=== PATIENT | female | born 1940 | race Caucasian/White ===

== ENCOUNTER 2019-01-13 12:26 | Emergency (ER) | payer OTHER ==
--- OUTSIDE RECORDS SUMMARY | 2019-01-13 12:29 | XMS REPORT ---
:1940 Author Organization eClinicalWorks Care Team Providers Name Role Phone Leone [facility] Provider Role Unavailable Allergies, Adverse Reactions, Alerts Substance Reaction Event Type N.K.D.A. Info Not Available Non Drug Allergy Problems Problem Type Condition Code Onset Dates Condition Status Problem GERD without esophagitis K21.9 Active Problem Carotid artery occlusion syndrome G45.1 Active Problem Mixed hyperlipidemia E78.2 Active Assessment Migraine without aura and without G43.009 Active status migrainosus, not intractable Problem Migraine with aura and without G43.109 Active status migrainosus, not intractable Problem Rash R21 Active Problem Migraine without aura and without G43.009 Active status migrainosus, not intractable Problem At risk for falls Z91.81 Active Problem HTN, goal below 150/90 I10 Active Problem Allergic reaction, initial T78.40XA Active encounter Problem Osteopenia, unspecified location M85.80 Active Medications Medication Code Code Instructions Start End Status Dosage System Date Date Alive Once Daily [facility] 70108382192 - Orally Active as directed Womens 50+ Collagen Plus Vitamin [facility] 50722186389 740-125 MG Active 2 capsules C Orally Once a day Hair Skin Nails ND 49831098892 - Orally Active as directed Metoprolol Tartrate ND 76986024234 25 MG Orally Active 1 tablet Twice a day with food Vitamin C [facility] 69041015124 500 MG Orally Active as directed Move Free Joint [facility] 04626815143 - Orally Active as directed Health Advance Losartan Potassium ND 18404934999 100 MG Orally Active 1 tablet Once a day Calcium + D3 ND 95621802337 600-200 Active 1 tablet MG-UNIT Orally with a meal Once a day Triamcinolone ND 71293538815 0.1 % Sept Active 1 Acetonide Externally 20, application Twice a day 2017 to affected area Hydrochlorothiazide ND 77338228534 12.5 MG Orally Active 1 capsule in Once a day the morning Probiotic ND 17611486957 250 MG Orally Active 1 capsule Twice a day Cinnamon ND 66447792385 500 MG Orally Active as directed [place] 3-6-9 Complex [facility] 50701818086 - Orally Active as directed Turmeric Curcumin [facility] 46255124906 500 MG Orally Active as directed Simvastatin [facility] 97278830377 20 MG Orally Active 1 tablet in Once a day the evening Clopidogrel Bisulfate [facility] 51204389594 75 MG Orally Active 1 tablet Once a day Selenium [facility] 72385059572 100 MCG Orally Active 1 tablet Once a day Ultra COQ10 [facility] 79928145980 75 MG Orally Active as directed Pantoprazole Sodium [facility] 14533124320 40 MG Orally Active 1 tablet Once a day Results No Known Results Summary Purpose eClinicalWorks Submission
[2019-01-13 14:09] LABS: Absolute Lymphocytes (CBC) 2.5 K/uL (0.7-4.9); Basophils % 1.3 % (0-1.3); Hematocrit 36.5 % (36.0-45.0); Lymphocytes % 39.5 % (15.3-44.8); MPV 9.7 fL (7.6-11.3); Protime INR 0.96; RBC Red Blood Cell Count 3.92 M/uL (3.86-4.86)
--- NOTE | 2019-01-13 14:21 | RAD REPORT ---
EXAM DESCRIPTION: RAD - Chest Single View - 01/13/2019 2:01 pm CLINICAL HISTORY: Weakness, shortness of breath COMPARISON: March 2015 TECHNIQUE: AP portable chest image was obtained 1340 hours . FINDINGS: Lung volumes are low. No peripheral mass or consolidation. Interstitial pattern is slightl y increased over comparison. Heart and vasculature are normal. No measurable pleural effusion and no pneumothorax. No acute bony abnormality seen. No acute aortic findings suspected. IMPRESSION: No focal mass or consolidation. Minimal interstitial edema or infiltrate pattern.
[2019-01-13 14:32] LABS: ALT/SGPT 23 U/L (12-78); AST/SGOT 18 U/L (15-37); Albumin 4.1 g/dL (3.4-5.0); Alkaline Phosphatase 80 U/L (45-117); BUN Blood Urea Nitrogen 46 mg/dL (7-18); Bicarbonate 30 mmol/L (21-32); Bilirubin Direct 0.2 mg/dL (0-0.2); Bilirubin Total 0.5 mg/dL (0.2-1.0); C-Reactive Protein 4.11 mg/L (<3.00); Glucose Level 107 mg/dL (74-106); Magnesium 1.7 mg/dL (1.8-2.4); NT PRO-BNP 102 pg/mL (<450); Protein, Total 7.6 g/dL (6.4-8.2); Sodium Level 142 mmol/L (136-145); Troponin (Emerg Dept Use Only) < 0.02 ng/mL (0.0-0.045)
--- NOTE | 2019-01-13 16:31 | ER ---
Nurse's Notes [facility] Name: Celina Dinh Age: 78 yrs Sex: Female : 1940 Arrival Date: 01/13/2019 Time: 12:35 Bed 24 Private MD: Diagnosis: Low back pain;Upper Back Pain, Arthralgias Presentation: 01/13 12:39 Presenting complaint: Pain in neck, back, bilateral legs, and generalized weakness x 1 hb week. Denies N/V/D/fever. Transition of care: patient was not received from another setting of care. Onset of symptoms was January 06, 2019. Risk Assessment: Do you want to hurt yourself or someone else? Patient reports no desire to harm self or others. Initial Sepsis Screen: Does the patient meet any 2 criteria? No. Patient's initial sepsis screen is negative. Does the patient have a suspected source of infection? No. Patient's initial sepsis screen is negative. 12:39 Method Of Arrival: Ambulatory hb 12:39 Acuity: SHERRELL 3 hb 13:00 Care prior to arrival: None. ca1 Historical: - Allergies: 12:41 Aspirin; nausea; hb - Immunization history:: Adult Immunizations up to date. - Social history:: Smoking status: Patient/guardian denies using tobacco. - Ebola Screening: : No symptoms or risks identified at this time. Screenin:53 Abuse screen: Denies threats or abuse. Denies injuries from another. Nutritional ca1 screening: No deficits noted. Tuberculosis screening: No symptoms or risk factors identified. Fall Risk None identified. Assessment: 12:53 General: Appears in no apparent distress. comfortable, Behavior is calm, cooperative, ca1 appropriate for age, Reports fatigue for >3 days. Pain: Complains of pain in back and neck Pain currently is 3 out of 10 on a pain scale. Neuro: Level of Consciousness is awake, alert, obeys commands, Oriented to person, place, time, situation. Cardiovascular: Heart tones S1 S2 present Capillary refill < 3 seconds Patient's skin is warm and dry. Pulses are all present. Edema is 2+ to left ankle, left foot, left toes, right ankle, right foot and right toes. Respiratory: Airway is patent Respiratory effort is even, unlabored, Respiratory pattern is regular, symmetrical, Breath sounds are clear bilaterally. GI: Abdomen is round non-distended, Bowel sounds present X 4 quads. Abd is soft and non tender X 4 quads. : No deficits noted. No signs and/or symptoms were reported regarding the genitourinary system. EENT: No deficits noted. No signs and/or symptoms were reported regarding the EENT system. Derm: Skin is intact, is healthy with good turgor, Skin is pink, warm \T\ dry. Musculoskeletal: Circulation, motion, and sensation intact. Capillary refill < 3 seconds. 14:13 Reassessment: Patient appears in no apparent distress at this time. Patient and/or ca1 family updated on plan of care and expected duration. Pain level reassessed. Patient is alert, oriented x 3, equal unlabored respirations, skin warm/dry/pink. 15:12 Reassessment: Patient appears in no apparent distress at this time. Patient and/or ca1 family updated on plan of care and expected duration. Pain level reassessed. Patient is alert, oriented x 3, equal unlabored respirations, skin warm/dry/pink. 16:07 Reassessment: Patient appears in no apparent distress at this time. Patient and/or ca1 family updated on plan of care and expected duration. Pain level reassessed. Patient is alert, oriented x 3, equal unlabored respirations, skin warm/dry/pink. 16:53 Reassessment: Patient appears in no apparent distress at this time. Patient is alert, ca1 oriented x 3, equal unlabored respirations, skin warm/dry/pink. Vital Signs: 12:40 BP 129 / 56; Pulse 62; Resp 16; Temp 98.1; Pulse Ox 100% on R/A; Weight 72.57 kg; hb Height 5 ft. 4 in. (162.56 cm); Pain 3/10; 14:13 BP 152 / 62; Pulse 60; Resp 19 S; Pulse Ox 100% ; ca1 14:50 BP 142 / 50; Pulse 59; Resp 17 S; Pulse Ox 99% on R/A; ca1 15:12 BP 142 / 82; Pulse 84; Resp 22 S; Pulse Ox 99% on R/A; ca1 16:07 BP 159 / 61; Pulse 63; Resp 16 S; Pulse Ox 100% on R/A; ca1 16:50 BP 142 / 79; Pulse 71; Resp 17 S; Pulse Ox 100% on R/A; ca1 12:40 Body Mass Index 27.46 (72.57 kg, 162.56 cm) hb ED Course: 12:35 Patient arrived in ED. am2 12:40 Triage completed. hb 12:40 Arm band placed on. hb 12:52 Maddy Davila, RN is Primary Nurse. ca1 12:53 Patient has correct armband on for positive identification. Placed in gown. Bed in low ca1 position. Call light in reach. Side rails up X 1. Pulse ox on. NIBP on. Warm blanket given. 12:53 No provider procedures requiring assistance completed. ca1 13:05 Mal Vazquez MD is Attending Physician. kdr 13:30 Missed attempt(s): 22 gauge in right antecubital area. Bleeding controlled, band aid ca1 applied, catheter tip intact. 13:40 Missed attempt(s): 22 gauge in right forearm. Bleeding controlled, band aid applied, ca1 catheter tip intact. 13:50 EKG done, by solar installer technician. reviewed by Mal Vazquez MD. at1 16:53 Patient did not have IV access during this emergency room visit. ca1 Administered Medications: No medications were administered Outcome: 16:29 Discharge ordered by . kdr 16:53 Discharged to home ambulatory, with friend. ca1 16:53 Condition: stable 16:53 Discharge instructions given to patient, friend, Instructed on discharge instructions, follow up and referral plans. Demonstrated understanding of instructions, follow-up care. 16:54 Patient left the ED. ca1 Signatures: Mal Vazquez MD MD kdr Elaina Mortensen, crap shooter EKG Tat1 Felicity Ware RN RN Elaina Johnson am2 Maddy Davila, MIKE RN ca1 Corrections: (The following items were deleted from the chart) 14:16 14:15 Missed attempt(s): 22 gauge Bleeding controlled, band aid applied, catheter tip ca1 intact. ca1
--- NOTE | 2019-01-13 16:32 | EDPHYS ---
Physician Documentation [facility] Name: Celina Dinh Age: 78 yrs Sex: Female : 1940 Arrival Date: 01/13/2019 Time: 12:35 Bed 24 Private MD: ED Physician Mal Vazquez HPI: 01/13 18:31 This 78 yrs old Female presents to ER via Ambulatory with complaints of Back kdr Pain, Neck Pain, <24hrs Old, Weakness. 18:32 The patient has c/o several days of pain in lher spine top to bottom as well as kdr bilateral shoulder pain and pain in her joints in general. Onset: The symptoms/episode began/occurred gradually, 1 week(s) ago. Severity of symptoms: At their worst the symptoms were mild in the emergency department the symptoms are unchanged. The patient has not experienced similar symptoms in the past. The patient has not recently seen a physician. Gets better with Tylenol. Historical: - Allergies: 12:41 Aspirin; nausea; hb - Immunization history:: Adult Immunizations up to date. - Social history:: Smoking status: Patient/guardian denies using tobacco. - Ebola Screening: : No symptoms or risks identified at this time. ROS: 18:32 Constitutional: Negative for fever, chills, and weight loss, Eyes: Negative for injury, kdr pain, redness, and discharge, ENT: Negative for injury, pain, and discharge, Neck: Negative for injury, pain, and swelling, Cardiovascular: Negative for chest pain, palpitations, and edema, Respiratory: Negative for shortness of breath, cough, wheezing, and pleuritic chest pain, Abdomen/GI: Negative for abdominal pain, nausea, vomiting, diarrhea, and constipation, Back: Negative for injury and pain, : Negative for injury, bleeding, discharge, and swelling, Skin: Negative for injury, rash, and discoloration, Neuro: Negative for headache, weakness, numbness, tingling, and seizure activity. Psych: Negative for depression, anxiety, suicide ideation, homicidal ideation, and hallucinations, Allergy/Immunology: Negative for hives, rash, and allergies, Endocrine: Negative for neck swelling, polydipsia, polyuria, polyphagia, and marked weight changes, Hematologic/Lymphatic: Negative for swollen nodes, abnormal bleeding, and unusual bruising. 18:32 MS/extremity: Positive for pain. Exam: 18:32 Constitutional: This is a well developed, well nourished patient who is awake, alert, kdr and in no acute distress. Head/Face: Normocephalic, atraumatic. Eyes: Pupils equal round and reactive to light, extra-ocular motions intact. Lids and lashes normal. Conjunctiva and sclera are non-icteric and not injected. Cornea within normal limits. Periorbital areas with no swelling, redness, or edema. Neck: Trachea midline, no thyromegaly or masses palpated, and no cervical lymphadenopathy. Supple, full range of motion without nuchal rigidity, or vertebral point tenderness. No Meningismus. Chest/axilla: Normal chest wall appearance and motion. Nontender with no deformity. No lesions are appreciated. Cardiovascular: Regular rate and rhythm with a normal S1 and S2. No gallops, murmurs, or rubs. Normal PMI, no JVD. No pulse deficits. Respiratory: Lungs have equal breath sounds bilaterally, clear to auscultation and percussion. No rales, rhonchi or wheezes noted. No increased work of breathing, no retractions or nasal flaring. Abdomen/GI: Soft, non-tender, with normal bowel sounds. No distension or tympany. No guarding or rebound. No evidence of tenderness throughout. Back: No spinal tenderness. No costovertebral tenderness. Full range of motion. Skin: Warm, dry with normal turgor. Normal color with no rashes, no lesions, and no evidence of cellulitis. MS/ Extremity: Pulses equal, no cyanosis. Neurovascular intact. Full, normal range of motion. Neuro: Awake and alert, GCS 15, oriented to person, place, time, and situation. Cranial nerves II-XII grossly intact. Motor strength 5/5 in all extremities. Sensory grossly intact. Cerebellar exam normal. Normal gait. Psych: Awake, alert, with orientation to person, place and time. Behavior, mood, and affect are within normal limits. Vital Signs: 12:40 BP 129 / 56; Pulse 62; Resp 16; Temp 98.1; Pulse Ox 100% on R/A; Weight 72.57 kg; hb Height 5 ft. 4 in. (162.56 cm); Pain 3/10; 14:13 BP 152 / 62; Pulse 60; Resp 19 S; Pulse Ox 100% ; ca1 14:50 BP 142 / 50; Pulse 59; Resp 17 S; Pulse Ox 99% on R/A; ca1 15:12 BP 142 / 82; Pulse 84; Resp 22 S; Pulse Ox 99% on R/A; ca1 16:07 BP 159 / 61; Pulse 63; Resp 16 S; Pulse Ox 100% on R/A; ca1 16:50 BP 142 / 79; Pulse 71; Resp 17 S; Pulse Ox 100% on R/A; ca1 12:40 Body Mass Index 27.46 (72.57 kg, 162.56 cm) hb MDM: 16:29 Patient medically screened. kdr 18:32 Data reviewed: vital signs, nurses notes, lab test result(s), radiologic studies. kdr Counseling: I had a detailed discussion with the patient and/or guardian regarding: the historical points, exam findings, and any diagnostic results supporting the discharge/admit diagnosis, lab results, radiology results, the need for outpatient follow up. 01/13 13:23 Order name: Basic Metabolic Panel [facility] 01/13 13:23 Order name: CBC with Diff [facility] 01/13 13:23 Order name: LFT's [facility] 01/13 13:23 Order name: Magnesium [facility] 01/13 13:23 Order name: NT PRO-BNP [facility] 01/13 13:23 Order name: PT-INR [facility] 01/13 13:23 Order name: Troponin (emerg Dept Use Only) [facility] 01/13 13:23 Order name: ESR [facility] 01/13 13:23 Order name: CRP [facility] 01/13 14:14 Order name: CBC with Automated Diff; Complete Time: 15:07 [facility] 01/13 14:14 Order name: Protime (+INR); Complete Time: 14:33 [facility] 01/13 14:35 Order name: Basic Metabolic Panel; Complete Time: 15:07 [facility] 01/13 14:35 Order name: Liver (Hepatic) Function; Complete Time: 15:07 [facility] 01/13 14:35 Order name: Troponin (Emerg Dept Use Only); Complete Time: 15:07 [facility] 01/13 13:23 Order name: XRAY Chest (1 view) [facility] 01/13 13:23 Order name: EKG; Complete Time: 13:26 [facility] 01/13 13:23 Order name: Cardiac monitoring; Complete Time: 13:27 [facility] 01/13 13:23 Order name: EKG - Nurse/Tech; Complete Time: 13:41 [facility] 01/13 13:23 Order name: IV Saline Lock; Complete Time: 13:54 [facility] 01/13 13:23 Order name: Labs collected and sent; Complete Time: 13:54 [facility] 01/13 13:23 Order name: O2 Per Protocol; Complete Time: 13:27 [facility] 01/13 13:23 Order name: O2 Sat Monitoring; Complete Time: 13:27 [facility] 01/13 14:35 Order name: NT PRO-BNP; Complete Time: 15:07 [facility] 01/13 14:35 Order name: C-Reactive Protein; Complete Time: 15:07 [facility] 01/13 14:35 Order name: Magnesium; Complete Time: 15:07 [facility] 01/13 14:37 Order name: Sedimentation Rate, W[place]; Complete Time: 15:07 [facility] Administered Medications: No medications were administered Disposition: 01/13/19 16:29 Discharged to Home. Impression: Low back pain, Upper Back Pain, Arthralgias. - Condition is Stable. - Medication Reconciliation Form, Thank You Letter, Antibiotic Education, Prescription Opioid Use form. - Follow up: Private Physician; When: 2 - 3 days; Reason: If symptoms return, Further diagnostic work-up, Recheck today's complaints, Continuance of care, Re-evaluation by your physician. - Problem is new. - Symptoms have improved. Signatures: Dispatcher [employer] [facility] Mal Vazquez MD MD [facility] Felicity Ware RN RN Maddy Davila RN RN ca1 Corrections: (The following items were deleted from the chart) 16:54 16:29 01/13/2019 16:29 Discharged to Home. Impression: Low back pain; Upper Back Pain, ca1 Arthralgias. Condition is Stable. Forms are Medication Reconciliation Form, Thank You Letter, Antibiotic Education, Prescription Opioid Use. Follow up: Private Physician; When: 2 - 3 days; Reason: If symptoms return, Further diagnostic work-up, Recheck today's complaints, Continuance of care, Re-evaluation by your physician. Problem is new. Symptoms have improved. kdr
[2019-01-13 17:49] VITALS: TEMP 98.1
[2019-01-13 17:54] VITALS: O2SAT 100
[2019-01-13 17:56] VITALS: BP 142/79
--- NOTE | 2019-01-14 10:34 | EKG ---
Test Date: 2019-01-13 Test Time: 13:36:47 Social Media Marketer: ARUNA MEASUREMENT RESULTS: Intervals: Rate: 61 RI: 232 QRSD: 88 QT: 428 QTc: 430 [place]: P: 46 RI: 232 QRS: -1 T: 72 INTERPRETIVE STATEMENTS: Sinus rhythm with 1st degree AV block Possible Anterior infarct, age undetermined Abnormal ECG Compared to ECG 03/28/2015 08:07:49 First degree AV block now present Myocardial infarct finding still present Electronically Signed On 01-14-19 10:31:45 CDT by J Carlos Rivero
== END 2019-01-13 16:54 | disposition home or self-care (01) ==
LOC: ER 12:26
DX: M54.5 Low back pain (principal); M54.9 Dorsalgia, unspecified
CPT/HCPCS: 36415; 71045; 80048; 80076; 83735; 83880; 84484; 85025; 85610; 85652; 86140; 93005; 99283

== ENCOUNTER 2020-05-17 19:08 | Inpatient (IN) | payer OTHER, SELFPAY ==
--- OUTSIDE RECORDS SUMMARY | 2020-05-17 19:11 | XMS REPORT | Continuity of Care Document ---
:1940 Author Organization [facility] t Address [address] 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 [facility] Mixed Mixed Problem Active [facility]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 hyperlipid Alyce kes - emia emia Memoria l [facility] GERD GERD Problem Active [facility] without without [facility] - esophagiti esophagiti Me moria s s l [facility] At risk At risk Problem Active [facility] for falls for falls [facility] - Memoria l [facility] HTN, goal HTN, goal Problem Active [facility] below below [facility] - 150/90 150/90 Memoria l [facility] Rash Rash Problem Active [facility] Allergic Allergic Problem Active [facility] reaction, reaction, Luke [facility] - initial initial Memoria encounter encounter l [facility] Osteopenia Osteopenia Problem Active [facility] , , [facility] - unspecifie unspecifie Me moria d location d location l [facility] Migraine Migraine Problem Active [facility] with aura with aura Luke [facility] - and and Memoria without without l status status Outpati migrainosu migrainosu en t s, not s, not Clinics intractabl intractabl e e Migraine Migraine Problem Active [facility] without without [facility] - aura and aura and Memori a without without l status status [facility] migrainosu migrainosu en t s, not s, not Clinics intractabl intractabl e e Hypercalce Hypercalce Problem Active [facility] ir[facility] iris [facility] Vitamin D Vitamin D Problem Active [facility] deficiency deficiency [facility] Hypomagnes Hypomagnes Problem Active [facility] emia emia [facility] Allergies, Adverse Reactions, Alerts Allergy Allergy Status Severity Reaction(s) Onset Inactive Treating Comm ents Source Name Type Date Date Clinician Aspirin Allergy Active Anaphylaxis Maryan gerson to Family substanc Practic e e Social History Smoking Status Start Date Stop Date Source Never Smoker [facility] Medications Ordered Filled Start Stop Current Ordering Indication Dosage Frequency Signature Comments Components Source Medication Medication Date Date Medication? Clinician (SIG) Name Name Magnesium Magnesium 2019-0 2020- No Adrian [address] [facility] Oxide Oxide 1-16 04-[address] [facility] 00:00: 00:[address] [facility] 00 :00 [facility] clopidogrel clopidogrel No 1 Q1D clopidogre [facility] 75 mg 75 mg l 75 mg Family tablet Take tablet Take tablet Practic 1 tablet 1 tablet Take 1 e every day every day tablet by oral by oral every day route. route. by oral route. magnesium magnesium No 1mg magnesium [facility] oxide 400 oxide 400 oxide 400 Family mg (241.3 mg (241.3 mg (241.3 Practic mg mg mg e magnesium) magnesium) magnesium) tablet Take tablet Take tablet 1 mg by 1 mg by Take 1 mg oral route. oral route. by oral route. simvastatin simvastatin No 1 Q1D simvastati [facility] 20 mg 20 mg n 20 mg Family tablet Take tablet Take tablet Practic 1 tablet 1 tablet Take 1 e every day every day tablet by oral by oral every day route. route. by oral route. valsartan valsartan No 1 Q1D valsartan [facility] 320 mg 320 mg 320 mg Family tablet Take tablet Take tablet Practic 1 tablet 1 tablet Take 1 e every day every day tablet by oral by oral every day route. route. by oral route. Clopidogrel Clopidogrel Yes Adrian [address] [facility] Bisulfate Bisulfate Leone [facility] ent [facility] Move Free Move Free Yes Adrian as [facility] Joint Joint Leone directed [facility] [place] Advance Advance l [facility] Metoprolol Metoprolol Yes Adrian [address] [facility] Tartrate Tartrate [place] with food L [facility] Vitamin C Vitamin C Yes Adrian as [facility] Leone directed [facility] [place] 3-6-9 [place] 3-6-9 Yes [address] [facility] Complex Complex Leone directed [facility] Cinnamon Cinnamon Yes Adrian as [facility] [place] directed [facility] Hydrochloro Hydrochloro Yes Adrian [address] thiazide thiazide Leone in the Luke s - morning [facility] Selenium Selenium Yes Adrian [address] Leone [facility] Calcium + Calcium + Yes Adrian [address] D3 D3 [facility] with a [facility] - meal [facility] Simvastatin Simvastatin Yes Adrian [address] Leone in the [facility]ukes - evening [facility] Alive Once Alive Once Yes Adrian as [facility] Daily Daily Leone directed [facility] - Womens 50+ Womens 50+ Mem oria l [facility] Hair Skin Hair Skin Yes Adrian as [facility] Nails Nails [place] directed [facility] Probiotic Probiotic Yes Adrian [address] Leone [facility] Ultra COQ10 Ultra COQ10 Yes Adrian as [facility] Leone directed [facility] Collagen Collagen Yes Adrian [address] Plus Plus [facility] - Vitamin C Vitamin C Memor ia [facility] Turmeric Turmeric Yes Adrian as [facility] Curcumin Curcumin [place] directed [facility] Pantoprazol Pantoprazol Yes Adrian [address] e Sodium e Sodium Leone [facility] Losartan Losartan Yes Adrian [address] Potassium Potassium [place] [facility] Immunizations Ordered Immunization Filled Immunization Date Status Commen ts Source Name Name influenza, influenza, 2019-01-25 Completed [facility] injectable, injectable, 00:00:00 Practice quadrivalent quadrivalent Vital Signs Vital Name Observation Time Observation Value Comments Source BP Diastolic 2019-07-11 00:00:00 80 mm[Hg] [facility] Height 2019-07-11 00:00:00 64 [in_i] [facility] BMI (Body Mass 2019-07-11 00:00:00 27.6 kg/m2 [facility] Family Index) Practice BP Systolic 2019-07-11 00:00:00 125 mm[Hg] [facility] Body Weight 2019-07-11 00:00:00 161 [lb_av] [facility] Procedures Procedure Date / Time Performed Performing Clinician Sourtreva e Appendectomy [facility] stephane Plan of Care Planned Activity Planned Date Details Comments Source Instructions [facility] Encounters Start End Encounter Admission Attending Care Care Encounter Source Date/Time Date/Time Type Type Clinicians Facility Department ID 2019-08-03 2019-08-03 [facility] [id number] 16:37:00 16:37:00 [employer] [facility] Medicine Outpati ent Clinics 2019-08-02 2019-08-02 [facility] [id number] [address] 14:47:00 14:47:00 [employer] [facility] Medicine Outpati ent Clinics 2019-07-11 2019-07-11 Cheryl [facility] [place] - [id number] V illage 00:00:00 00:00:00 StephenChace [facility] andi hannon [employer]ER: Medical - Practi c [address] [email or web address] [facility], [place] [address], [place] [address] , Ph. 2019-07-07 2019-07-07 [facility] [id number] 09:49:00 09:49:00 [employer] [facility] Medicine Medicine Outpati ent Clinics 2019-06-06 2019-06-06 [facility] [id number] 12:07:00 12:07:00 [employer] [facility] Medicine Outpati ent Clinics 2019-06-06 2019-06-06 [facility] [id number] 10:43:00 10:43:00 [employer] [facility] Medicine Outpati ent Clinics 2019-06-06 2019-06-06 [facility] [id number] 09:54:00 09:54:[address] Luke [facility] - Drive [facility] Medicine l Medicine Outpati ent Clinics 2019-05-12 2019-05-12 [facility] [id number] 15:09:00 15:09:[address] Luke s - Drive [facility] Medicine l Medicine Outpati ent Clinics 2019-05-12 2019-05-12 [facility] [id number] 14:45:00 14:45:00 t [place] [employer] Luke s - Drive [facility] Medicine l Medicine Outpati ent Clinics 2019-02-28 2019-02-28 [facility] [id number] 14:20:00 14:20:00 t [place] [employer] - Drive [facility] Medicine l Medicine Outpati ent Clinics 2019-02-25 2019-02-25 [facility] [id number] 17:16:00 17:16:00 t [place] [employer] Luke s - Drive [facility] Medicine l Medicine Outpati ent Clinics 2019-02-14 2019-02-14 [facility] [id number] 08:42:00 08:42:00 t [place] [employer] - Drive [facility] l Medicine Outpati ent Clinics 2019-02-09 2019-02-09 [facility] [id number] 14:00:00 14:00:00 t [place] [employer] Luke s - Drive [facility] Medicine l Medicine Outpati ent Clinics 2019-01-13 2019-01-13 [facility] [id number] 11:07:00 11:07:00 t [place] [employer] Luke s - Drive [facility] Medicine l Medicine Outpati ent Clinics 2019-01-05 2019-01-05 [facility] [id number] 13:45:00 13:45:00 t [place] [employer] s - Drive [facility] Medicine l Medicine Outpati ent Clinics 2018-12-23 2018-12-23 [facility] [id number] 08:28:00 08:28:00 t [place] [employer] s - Drive [facility] Medicine Outpati ent Clinics 2018-12-22 2018-12-22 [facility] [id number] 13:15:00 13:15:00 t [employer] [facility] Medicine Outpati ent Clinics 2018-08-04 2018-08-04 [facility] [id number] 14:00:00 14:00:00 t [employer] [facility] Medicine Outpati ent Clinics 2018-07-06 2018-07-06 [facility] [id number] 11:03:00 11:03:00 t [employer] [facility] Medicine Outpati ent Clinics 2018-04-09 2018-04-09 [facility] [id number] 11:15:00 11:15:00 t [employer] [facility] Medicine Outpati ent Clinics 2018-01-14 2018-01-14 [facility] [id number] 10:15:00 10:15:00 t Urgent Urgent Care L [facility] [address] l Outpati ent Clinics 2017-12-09 2017-12-09 [facility] [id number] 14:30:00 14:30:00 t [employer] [facility] Medicine Outpati ent Clinics Results This patient has no known results.
--- NOTE | 2020-05-17 19:30 | RAD REPORT ---
EXAM DESCRIPTION: CT - Ct Stroke Brain Wo Cont - 05/17/2020 7:21 pm CLINICAL HISTORY: DIZZINESS Headache, drowsiness, CVA symptomology COMPARISON: Head Brain Wo Cont dated 12/22/2018; Facial Bones W/ Mpr dated 09/07/2017 TECHNIQUE: All CT scans are performed using dose optimization technique as appropriate and may inclu de automated exposure control or mA/KV adjustment according to patient size. FINDINGS: No intracranial hemorrhage, hydrocephalus or extra-axial fluid collection.Mild generalized brain atrophy is present with moderate periventricular and deep white matter chronic microvascular i schemic changes.No areas of brain edema or evidence of midline shift. The paranasal sinuses and mastoids are clear. The calvarium is intact. IMPRESSION: No acute intracranial abnormality. The findings were discussed with Doug Jameson in the ER on 05/17/2020 at 7:05 p.m. by telephone.
[2020-05-17 19:45] LABS: Protime INR 0.97
[2020-05-17 19:46] LABS: Basophils % 0.9 % (0-1.3); Hematocrit 39.6 % (36.0-45.0); Lymphocytes % 32.8 % (15.3-44.8); MPV 9.5 fL (7.6-11.3); RBC Red Blood Cell Count 4.31 M/uL (3.86-4.86)
[2020-05-17] MEDS ORDERED: Nicardipine/NS 25 MG/250 ML KIT IV ONE (19:47)
[2020-05-17 20:03] LABS: ALT/SGPT 18 U/L (12-78); AST/SGOT 18 U/L (15-37); Albumin 3.8 g/dL (3.4-5.0); Alkaline Phosphatase 83 U/L (45-117); BUN Blood Urea Nitrogen 15 mg/dL (7-18); Bicarbonate 29 mmol/L (21-32); Bilirubin Direct 0.2 mg/dL (0-0.2); Bilirubin Total 0.6 mg/dL (0.2-1.0); Glucose Level 110 mg/dL (74-106); Magnesium 1.9 mg/dL (1.8-2.4); NT PRO-BNP 111 pg/mL (<450); Potassium 3.9 mmol/L (3.5-5.1); Protein, Total 7.5 g/dL (6.4-8.2); Sodium Level 143 mmol/L (136-145); Troponin (Emerg Dept Use Only) < 0.02 ng/mL (0.0-0.045)
--- NOTE | 2020-05-17 20:12 | EDPHYS ---
Physician Documentation [facility] Name: Celina Dinh Age: 80 yrs Sex: Female : 1940 Arrival Date: 05/17/2020 Time: 19:12 Bed 8 Private MD: ED Physician Maury Parada HPI: 05/17 19:55 This 80 yrs old Female presents to ER via EMS with complaints of S/S of jr8 Possible Stroke. 19:55 The patient's problem is reported as altered mental status, confused, dysphasia, slow jr8 speech, expressive aphasia. Onset: The symptoms/episode began/occurred acutely, just prior to arrival, today. Duration: The episode is continuous. Context: the episode(s) was witnessed, by a friend, occurred at home, occurred while the patient was walking. The symptoms are alleviated by nothing. The symptoms are aggravated by nothing. Associated signs and symptoms: The patient has no apparent associated signs or symptoms. Severity of symptoms: At their worst the symptoms were moderate in the emergency department the symptoms are unchanged. Patient's baseline: Neuro: alert and fully oriented, Motor: no deficits, Ambulation: walks without assistance, Speech: normal. It is unknown whether or not the patient has had similar symptoms in the past. It is unknown whether or not the patient has recently seen a physician. EMS stated that friends told them that they were walking and talking. Stated that she stopped and went down to her knees and then rolled over. Denies LOC. Stated that she started to have expressive aphasia. EMS noted this along with twitching. Stated that she was Hypertensive as well. 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 Historical: - Allergies: 19:42 Aspirin; nausea; mg2 - Home Meds: 19:42 losartan [Active]; lasix [Active]; baclofen [Active]; mg2 - PMHx: 19:42 Hypertension; mg2 - PSHx: 19:42 Unable to obtain; mg2 - Immunization history:: Flu vaccine status is unknown. - Social history:: Smoking status: unknown. ROS: 19:55 Unable to obtain ROS due to altered mental status. jr8 Exam: 19:55 Radiologist reports: No acute intracranial findings jr8 19:55 Head/Face: Normocephalic, atraumatic. Eyes: Pupils equal round and reactive to light, extra-ocular motions intact. Lids and lashes normal. Conjunctiva and sclera are non-icteric and not injected. Cornea within normal limits. Periorbital areas with no swelling, redness, or edema. ENT: Nares patent. No nasal discharge, no septal abnormalities noted. Tympanic membranes are normal and external auditory canals are clear. Oropharynx with no redness, swelling, or masses, exudates, or evidence of obstruction, uvula midline. Mucous membranes moist. Neck: Trachea midline, no thyromegaly or masses palpated, and no cervical lymphadenopathy. Supple, full range of motion without nuchal rigidity, or vertebral point tenderness. No Meningismus. Cardiovascular: Regular rate and rhythm with a normal S1 and S2. No gallops, murmurs, or rubs. Normal PMI, no JVD. No pulse deficits. Respiratory: Lungs have equal breath sounds bilaterally, clear to auscultation and percussion. No rales, rhonchi or wheezes noted. No increased work of breathing, no retractions or nasal flaring. Abdomen/GI: Soft, non-tender, with normal bowel sounds. No distension or tympany. No guarding or rebound. No evidence of tenderness throughout. Back: No spinal tenderness. No costovertebral tenderness. Full range of motion. Skin: Warm, dry with normal turgor. Normal color with no rashes, no lesions, and no evidence of cellulitis. MS/ Extremity: Pulses equal, no cyanosis. Neurovascular intact. Full, normal range of motion. 19:55 Neuro: Orientation: to person, place, Mentation: able to follow commands, slow to respond, confused, Memory: immediate memory is intact, remote memory is impaired, recent memory is impaired, Cranial nerves: CN I not tested, CN II- XII are normal as tested, visual gutierres are intact. extraocular movements are intact, Nystagmus is absent. Speech is clear and appropriate. Tongue strength is normal, Cerebellar function: normal finger to nose testing, heel to cisneros testing is normal, Motor: moves all fours, strength is 5/5 in all extremities, Sensation: no obvious gross deficits, seizure activity, is not displayed by the patient, Abnormal movements: episodic synchronous bilateral arm and leg twitching present. Vital Signs: 19:05 BP 207 / 107; Pulse 83; Resp 18; Temp 98.3; Pulse Ox 98% on R/A; mg2 19:47 BP 174 / 79; Pulse 73; Resp 18; Pulse Ox 100% on R/A; mg2 20:00 BP 188 / 72; Pulse 84; Resp 18; Pulse Ox 100% on R/A; mg2 20:22 BP 200 / 72; Pulse 98; Resp 18; Pulse Ox 100% on R/A; mg2 20:24 BP 179 / 66; Pulse 90; Resp 18; Pulse Ox 100% on R/A; mg2 20:49 BP 175 / 84; Pulse 88; Resp 18; Pulse Ox 100% on R/A; mg2 22:13 BP 156 / 66; Pulse 89; Resp 18; Pulse Ox 100% on R/A; mg2 NIH Stroke Scale Scores: 19:15 NIHSS Score: 2 mg2 19:55 NIHSS Score: 2 jr8 MDM: 19:16 Patient medically screened. john 19:31 ED course: Discussed case with Dr. Graham as patient has on/off expressive aphasia jr8 along with syncronys twitching which is atypical for stroke. Dr. Graham agrees and thinks it may be related to PRES syndrome. Will control BP and get MRI in the AM. Patient is not a tPA candidate and is contraindicated based on symptoms and working differential . 20:10 Data reviewed: vital signs, nurses notes, lab test result(s), EKG, radiologic studies, [facility] CT scan, plain films. Data interpreted: Pulse oximetry: on room air is 100 %. Interpretation: normal. Counseling: I had a detailed discussion with the patient and/or guardian regarding: the historical points, exam findings, and any diagnostic results supporting the discharge/admit diagnosis, lab results, radiology results, the need for further work-up and treatment in the hospital. 05/17 19:18 Order name: Basic Metabolic Panel [facility] 05/17 19:18 Order name: CBC with Diff [facility] 05/17 19:18 Order name: LFT's [facility] 05/17 19:18 Order name: Magnesium [facility] 05/17 19:18 Order name: NT PRO-BNP [facility] 05/17 19:18 Order name: PT-INR [facility] 05/17 19:18 Order name: Troponin (emerg Dept Use Only) [facility] 05/17 19:42 Order name: Glucose, Ancillary Testing; Complete Time: 19:54 EDMS 05/17 19:53 Order name: CBC with Automated Diff; Complete Time: 19:54 EDMS 05/17 19:53 Order name: Protime (+INR); Complete Time: 19:54 EDMS 05/17 20:04 Order name: Basic Metabolic Panel; Complete Time: 20:09 EDMS 05/17 20:04 Order name: Liver (Hepatic) Function; Complete Time: 20:09 EDMS 05/17 20:04 Order name: Troponin (Emerg Dept Use Only); Complete Time: 20:09 EDMS 05/17 20:04 Order name: NT PRO-BNP; Complete Time: 20:09 EDMS 05/17 19:16 Order name: CT Stroke Brain w/o Contrast bd 05/17 19:18 Order name: XRAY Chest (1 view) [facility] 05/17 19:18 Order name: EKG; Complete Time: 19:19 jr8 05/17 19:18 Order name: Cardiac monitoring; Complete Time: 19:30 8 05/17 19:18 Order name: EKG - Nurse/Tech; Complete Time: 19:30 8 05/17 19:18 Order name: IV Saline Lock; Complete Time: 19:30 8 05/17 19:18 Order name: Labs collected and sent; Complete Time: 19:30 8 05/17 19:32 Order name: CT; Complete Time: 19:36 EDMS 05/17 20:04 Order name: Magnesium; Complete Time: 20:09 EDMS 05/17 20:22 Order name: COVID-19 mg2 05/17 20:37 Order name: RAD; Complete Time: 20:48 EDMS 05/17 21:02 Order name: Urine Dipstick--Ancillary (enter results) mw2 05/17 21:13 Order name: Urine Dipstick-Ancillary; Complete Time: 13:29 EDMS 05/17 21:19 Order name: CORONAVIRUS EDMS 05/17 22:31 Order name: SARS-COV-2 RT PCR; Complete Time: 13:29 EDMS 05/17 19:18 Order name: O2 Per Protocol; Complete Time: 19:37 jr8 05/17 19:18 Order name: O2 Sat Monitoring; Complete Time: 19:37 jr8 Administered Medications: 19:36 Drug: Cardene 5 mg/hr Route: IV; Rate: calculated rate; Site: right hand; mg2 Disposition: 05/18 07:24 Co-signature as Attending Physician, Maury Parada MD I agree with the assessment and john plan of care. Disposition: 05/17/20 20:11 Hospitalization ordered by Mal Olivia for Inpatient Admission. 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 - Bed requested for Intensive Care Unit. - Status is Inpatient Admission. mg2 - Condition is Fair. - Problem is new. - Symptoms have improved. NIH Stroke Scale - NIH Stroke Score Date: 05/17/2020 Time: 19:15 Total Score = 2 1a. Level of Consciousness (LOC) - 0(Alert) 1b. Level of Consciousness (LOC) (Year \T\ Age) - 1(One) 1c. LOC Commands (Open \T\ Closes Eyes/Visiting Teacher) - 0(Both) 2. Best Gaze (Lateral Gaze Paresis) - 0(Normal) 3. Visual Field Loss - 0(No visual loss) 4. Facial Palsy - 0(Normal) 5a. Left Arm: Motor (10-second hold) - 0(No drift) 5b. Right Arm: Motor (10-second hold) - 0(No drift) 6a. Left Leg: Motor (5-second hold - always test supine) - 0(No drift) 6b. Right Leg: Motor (5-second hold - always test supine) - 0(No drift) 7. Limb Ataxia (finger/nose \T\ heel/cisneros - test with eyes open) - 0(Absent) 8. Sensory Loss (pinprick arms/legs/face) - 0(Normal) 9. Best Language: Aphasia (description/naming/reading) - 1(Mild to moderate aphasia) 10. Dysarthria (speech clarity - read or repeat words) - 0(Normal) 11. Extinction and Inattention (visual/tactile/auditory/spatial/personal) - 0(No abnormality) Initials: mg2 NIH Stroke Scale - NIH Stroke Score Date: 05/17/2020 Time: 19:55 Total Score = 2 1a. Level of Consciousness (LOC) - 0(Alert) 1b. Level of Consciousness (LOC) (Year \T\ Age) - 1(One) 1c. LOC Commands (Open \T\ Closes Eyes/Visiting Teacher) - 0(Both) 2. Best Gaze (Lateral Gaze Paresis) - 0(Normal) 3. Visual Field Loss - 0(No visual loss) 4. Facial Palsy - 0(Normal) 5a. Left Arm: Motor (10-second hold) - 0(No drift) 5b. Right Arm: Motor (10-second hold) - 0(No drift) 6a. Left Leg: Motor (5-second hold - always test supine) - 0(No drift) 6b. Right Leg: Motor (5-second hold - always test supine) - 0(No drift) 7. Limb Ataxia (finger/nose \T\ heel/cisneros - test with eyes open) - 0(Absent) 8. Sensory Loss (pinprick arms/legs/face) - 0(Normal) 9. Best Language: Aphasia (description/naming/reading) - 1(Mild to moderate aphasia) 10. Dysarthria (speech clarity - read or repeat words) - 0(Normal) 11. Extinction and Inattention (visual/tactile/auditory/spatial/personal) - 0(No abnormality) Initials: jr8 Signatures: Dispatcher [employer] EDJohn Buchanan RN RN Maury Serra MD MD cha Roszak, Josh, PA PA jr8 Juan Carlos Marsh, SPECIFICATION MANAGER-C SPECIFICATION MANAGER-Cla1 Marlo Arnett RN RN mg2 Corrections: (The following items were deleted from the chart) 05/17 21:00 20:11 Hospitalization Ordered by Mal Olivia DO for Inpatient Admission. sg Preliminary diagnosis is Posterior reversible encephalopathy syndrome. Bed requested for Intensive Care Unit. Status is Inpatient Admission. Condition is Fair. Problem is new. Symptoms have improved. jr8 22:47 21:00 05/17/2020 20:11 Hospitalization Ordered by Mal Olivia DO for mg2 Inpatient Admission. 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 Bed requested for Intensive Care Unit. Status is Inpatient Admission. Condition is Fair. Problem is new. Symptoms have improved. sg
--- NOTE | 2020-05-17 20:12 | ER ---
Nurse's Notes [facility] Name: Celina Dinh Age: 80 yrs Sex: Female : 1940 Arrival Date: 05/17/2020 Time: 19:12 Bed 8 Private MD: Diagnosis: Posterior reversible encephalopathy syndrome Presentation: 05/17 19:05 Chief complaint: EMS states: she lives in an elderly complex and friend said she was mg2 standing and started to bend down on her knees and almost fell down to the ground. started to have expressive aphasia with some jerky movement. normally she is aox4. symptoms started \T\ 1830. Coronavirus screen: Client denies travel out of the [place] in the last 14 days. At this time, the client does not indicate any symptoms associated with coronavirus-19. Ebola Screen: No symptoms or risks identified at this time. No acute neurological deficit is noted. The patients blood glucose was checked before arriving to the hospital and was found to be normal. Initial Sepsis Screen: Does the patient meet any 2 criteria? No. Patient's initial sepsis screen is negative. Does the patient have a suspected source of infection? No. Patient's initial sepsis screen is negative. Risk Assessment: Do you want to hurt yourself or someone else? Patient reports no desire to harm self or others. Onset of symptoms was May 17, 2020. 19:05 Method Of Arrival: EMS: [place] [id number] 19:05 Acuity: SHERRELL 2 mg2 Triage Assessment: 19:42 The onset of the patients symptoms was May 17, 2020 at 18:30. General: Appears in mg2 no apparent distress. comfortable, Behavior is calm. Pain: Denies pain. EENT: No deficits noted. Neuro: Level of Consciousness is awake, confused, Oriented to person. Cardiovascular: Capillary refill < 3 seconds Patient's skin is warm and dry. Respiratory: Airway is patent Respiratory effort is even, unlabored, Respiratory pattern is regular, symmetrical. GI: No signs and/or symptoms were reported involving the gastrointestinal system. : No signs and/or symptoms were reported regarding the genitourinary system. Derm: Skin is intact, is healthy with good turgor, Skin is pink, warm \T\ dry. normal. Musculoskeletal: Circulation, motion, and sensation intact. Capillary refill < 3 seconds. 20:26 Neuro:. mg2 Stroke Activation: Symptom onset < 3 hours Physician: Stroke Attending; Name: ; Notified At: ; Arrived At: Physician: Chief Stroke Resident; Name: ; Notified At: ; Arrived At: Physician: Stroke Resident; Name: ; Notified At: ; Arrived At: Physician: ED Attending; Name: ; Notified At: ; Arrived At: Physician: ED Resident; Name: ; Notified At: ; Arrived At: Historical: - Allergies: 19:42 Aspirin; nausea; mg2 - Home Meds: 19:42 losartan [Active]; lasix [Active]; baclofen [Active]; mg2 - PMHx: 19:42 Hypertension; mg2 - PSHx: 19:42 Unable to obtain; mg2 - Immunization history:: Flu vaccine status is unknown. - Social history:: Smoking status: unknown. Screenin:45 Abuse screen: Denies threats or abuse. Denies injuries from another. Nutritional mg2 screening: No deficits noted. Tuberculosis screening: No symptoms or risk factors identified. Fall Risk IV access (20 points). Assessment: 19:15 The patient is alert, and able to follow commands. The patient does not exhibit slurred mg2 or garbled speech. The patient is not exhibiting difficulty speaking. The patient does not exhibit difficulty understanding words. The patient is able to swallow own secretions with no drooling or need for suction. Patient tolerated one teaspoon of water. No drooling, immediate coughing, gurgling, or clearing of the throat was noted. The patient passed the bedside swallow screening. Oral medications may be given as ordered. Contact Physician for further diet orders. T-PA (Activase) Screening: Contraindications: Blood pressure is more than 185/110: Yes. 19:15 Patient has been NPO before screening. The patient tolerated 90mL of water. No mg2 drooling, immediate coughing, gurgling, or clearing of the throat was noted. 19:15 Provider notified of bedside swallow screening results: Neo CERVANTES. mg2 19:44 VAN Scoring: VAN Scoring: Arm Drift: Patients demonstrates NO arm weakness. Patient is mg2 VAN Negative. 19:45 Reassessment: see triage note. mg2 21:00 Reassessment: Reassessment: pt to transfer to ER ICU HLD 10 after COVID test post sg negative. Vital Signs: 19:05 BP 207 / 107; Pulse 83; Resp 18; Temp 98.3; Pulse Ox 98% on R/A; mg2 19:47 BP 174 / 79; Pulse 73; Resp 18; Pulse Ox 100% on R/A; mg2 20:00 BP 188 / 72; Pulse 84; Resp 18; Pulse Ox 100% on R/A; mg2 20:22 BP 200 / 72; Pulse 98; Resp 18; Pulse Ox 100% on R/A; mg2 20:24 BP 179 / 66; Pulse 90; Resp 18; Pulse Ox 100% on R/A; mg2 20:49 BP 175 / 84; Pulse 88; Resp 18; Pulse Ox 100% on R/A; mg2 22:13 BP 156 / 66; Pulse 89; Resp 18; Pulse Ox 100% on R/A; mg2 NIH Stroke Scale Scores: 19:15 NIHSS Score: 2 mg2 19:55 NIHSS Score: 2 jr8 ED Course: 19:10 Patient placed in an exam room, on a stretcher, on pulse oximetry. ea 19:10 Inserted saline lock: 20 gauge in right hand, using aseptic technique. mg2 19:12 Patient arrived in ED. ds1 19:16 Maury Parada MD is Attending Physician. john 19:16 Neo Jameson PA is PHCP. jr8 19:30 Marlo Arnett RN is Primary Nurse. mg2 19:42 Triage completed. mg2 19:45 Patient has correct armband on for positive identification. library monitor on. Pulse mg2 ox on. NIBP on. 19:45 No provider procedures requiring assistance completed. mg2 19:45 Maintain EMS IV. Dressing intact. Good blood return noted. Site clean \T\ dry. Gauge \T\ mg 2 site: 18 \T\ RAC. 19:46 Inserted saline lock: 20 gauge in left wrist, using aseptic technique. Blood collected. mg2 by MIKE Emanuel. 20:11 Mal Olivia DO is Hospitalizing Provider. jr8 21:08 Patient admitted, IV remains in place. ea Administered Medications: 19:36 Drug: Cardene 5 mg/hr Route: IV; Rate: calculated rate; Site: right hand; mg2 Outcome: 20:11 Decision to Hospitalize by Provider. jr8 21:08 Condition: stable ea 21:08 Instructed on the need for transfer. 22:36 Admitted to ICU accompanied by nurse, room er icu 10, with chart, Report called to kareem Avitia RN 22:47 [place] [facility] [place] Stroke Scale - NIH Stroke Score Date: 05/17/2020 Time: 19:15 Total Score = 2 1a. Level of Consciousness (LOC) - 0(Alert) 1b. Level of Consciousness (LOC) (Year \T\ Age) - 1(One) 1c. LOC Commands (Open \T\ Closes Eyes/Cloth Beamer) - 0(Both) 2. Best Gaze (Lateral Gaze Paresis) - 0(Normal) 3. Visual Field Loss - 0(No visual loss) 4. Facial Palsy - 0(Normal) 5a. Left Arm: Motor (10-second hold) - 0(No drift) 5b. Right Arm: Motor (10-second hold) - 0(No drift) 6a. Left Leg: Motor (5-second hold - always test supine) - 0(No drift) 6b. Right Leg: Motor (5-second hold - always test supine) - 0(No drift) 7. Limb Ataxia (finger/nose \T\ heel/cisneros - test with eyes open) - 0(Absent) 8. Sensory Loss (pinprick arms/legs/face) - 0(Normal) 9. Best Language: Aphasia (description/naming/reading) - 1(Mild to moderate aphasia) 10. Dysarthria (speech clarity - read or repeat words) - 0(Normal) 11. Extinction and Inattention (visual/tactile/auditory/spatial/personal) - 0(No abnormality) [place]ials[place] [facility] [place] Stroke Scale - NIH Stroke Score Date: 05/17/2020 Time: 19:55 Total Score = 2 1a. Level of Consciousness (LOC) - 0(Alert) 1b. Level of Consciousness (LOC) (Year \T\ Age) - 1(One) 1c. LOC Commands (Open \T\ Closes Eyes/Cloth Beamer) - 0(Both) 2. Best Gaze (Lateral Gaze Paresis) - 0(Normal) 3. Visual Field Loss - 0(No visual loss) 4. Facial Palsy - 0(Normal) 5a. Left Arm: Motor (10-second hold) - 0(No drift) 5b. Right Arm: Motor (10-second hold) - 0(No drift) 6a. Left Leg: Motor (5-second hold - always test supine) - 0(No drift) 6b. Right Leg: Motor (5-second hold - always test supine) - 0(No drift) 7. Limb Ataxia (finger/nose \T\ heel/cisneros - test with eyes open) - 0(Absent) 8. Sensory Loss (pinprick arms/legs/face) - 0(Normal) 9. Best Language: Aphasia (description/naming/reading) - 1(Mild to moderate aphasia) 10. Dysarthria (speech clarity - read or repeat words) - 0(Normal) 11. Extinction and Inattention (visual/tactile/auditory/spatial/personal) - 0(No abnormality) Initials: jr8 Signatures: John Alexandre RN Maury Ma MD MD cha Sanford, Demi ds1 Neo Jameson PA PA jr8 Tana Mendes RN Marlo Manuel ea, RN RN mg2 Corrections: (The following items were deleted from the chart) 21:08 21:00 Reassessment: adwoa orona 05/18 03:43 05/17 19:44 VAN Scoring: mg2 mg2
--- NOTE | 2020-05-17 20:35 | RAD REPORT ---
EXAM DESCRIPTION: RAD - Chest Single View - 05/17/2020 8:27 pm CLINICAL HISTORY: DYSPNEA Chest pain. COMPARISON: Chest Single View dated 01/13/2019; CHEST PA AND LAT 2 VIEW dated 04/09/2015; CHEST PA AN D LAT 2 VIEW dated 08/04/2014; CHEST PA AND LAT 2 VIEW dated 01/18/2013 FINDINGS: Portable technique limits examination quality. Mild interstitial pulmonary edema. The heart is moderately enlarged in size. No displaced fractures. IMPRESSION: Mild CHF.
--- NOTE | 2020-05-17 21:06 | P.HP ---
Certification for Inpatient Patient admitted to: Inpatient With expected LOS: >2 Midnights Patient will require the following post-hospital care: None Practitioner: I am a practitioner with admitting privileges, knowledge of patient current condition, hospital course, and medical plan of care. Services: Services provided to patient in accordance with Admission requirements found in Title 42 Section 412.3 of the Code of Federal Regulations <Juan Carlos Marsh - Last Filed: 05/17/20 21:00> Patient History Date of Service: 05/17/20 Primary Care Provider: Dr. Leone Reason for admission: dysphasia History of Present Illness: 80-year-old female with reported history of hypertension presented to the emergency department for dysphasia and altered mental status. Patient stays at assisted living facility and there is reported by a friend that she was standing in started to bend down to her knees when she almost fell to the ground at that time she was noted to have some difficulty speaking along with some Jerky movements baseline mental status is alert, oriented x4 symptoms started at 6:30 p.m. today. Patient was initially very hypertensive systolic blood pressure 2/0 7 evaluated in the emergency department with CT head brain without contrast which was negative for any acute findings, labs unremarkable. Case was discussed with neurology by ED provider who suspected possible PRES syndrome related to hypertension. Patient not a candidate for t-PA in due to severe hypertension suspected PRES syndrome. Neurology recommends inpatient admission with Cardene drip, titrate blood pressure to 170 to 180s systolic with stroke workup. When I saw the patient in the emergency room she was awake, alert, oriented x2, some Dyspahsia noted, seems like expressive aphasia patient also some difficulty following commands. Will admit for further evaluation and management - Past Medical/Surgical History -: Hypertension -: CHF? Past Surgical History: Unable to obtain Psychosocial/ Personal History: Patient stays at assisted living facility - Family History Family History: Reviewed- Non-Contributory - Social History Smoking Status: Never smoker Alcohol use: No CD- Drugs: No Caffeine use: Yes Place of Residence: [facility] <Juan Carlos Marsh - Last Filed: 05/17/20 21:00> Date of Service: 05/18/20 <Mal Olivia - Last Filed: 05/18/20 09:49> Allergies aspirin Adverse Reaction (Verified 05/17/15 13:06) severe stomach upset Review of Systems is unable to be obtained <Juan Carlos Marsh - Last Filed: 05/17/20 21:00> Physical Examination - Physical Exam General: Alert, In no apparent distress, Oriented x2 HEENT: PERRLA, Other (Mucous membranes dry) Neck: Supple Respiratory: Normal air movement Cardiovascular: Regular rate/rhythm, Edema Capillary refill: <2 Seconds Gastrointestinal: Non-distended Musculoskeletal: No erythema, No tenderness Integumentary: No significant lesion, No tenderness/swelling Neurological: Normal strength at 5/5 x4 extr, Normal tone, Sensation intact, Ab normal speech (Expressive aphasia noted, difficulty coming up with words and understanding commands) - Studies Laboratory Data (last 24 hrs) 05/17/20 19:30: PT 11.5, INR 0.97 05/17/20 19:30: WBC 6.2, Hgb 13.3, Hct 39.6, Plt Count 231 05/17/20 19:30: Sodium 143, Potassium 3.9, BUN 15, Creatinine 0.99, Glucose 110 H, Magnesium 1.9, Total Bilirubin 0.6, AST 18, ALT 18, Alkaline Phosphatase 83 <Juan Carlos Marsh - Last Filed: 05/17/20 21:00> - Studies Laboratory Data (last 24 hrs) 05/17/20 19:30: PT 11.5, INR 0.97 05/17/20 19:30: WBC 6.2, Hgb 13.3, Hct 39.6, Plt Count 231 05/17/20 19:30: Sodium 143, Potassium 3.9, BUN 15, Creatinine 0.99, Glucose 110 H, Magnesium 1.9, Total Bilirubin 0.6, AST 18, ALT 18, Alkaline Phosphatase 83 <Mal Olivia - Last Filed: 05/18/20 09:49> Assessment and Plan - Problems (Diagnosis) (1) Hypertensive emergency Onset Date: ~05/17/20 Current Visit: Yes Status: Acute (2) Expressive aphasia Current Visit: Yes Status: Acute (3) PRES (posterior reversible encephalopathy syndrome) Current Visit: Yes Status: Acute - Plan Assessment Expressive aphasia and altered mental status secondary to suspected PRES syndrome Hypertensive emergency Plan Expressive aphasia and altered mental status secondary to suspected PRES syndrome: Neurology consulted while patient was in the emergency department, patient not a candidate for TPA due to significant hypertension and suspected PRES syndrome. Continue with stroke workup, MRI stroke protocol, echocardiogram, carotid rotary ultrasound ordered. Lipid panel, thyroid panel with morning labs. Q.4h neuro checks, admit to the ICU on Cardene drip. Titrate blood pressures to systolic between 170 to 180. DVT prophylaxis with SCDs. Continue with folic acid, aspirin, statin therapy. Appreciate further input from neurology. Hypertensive emergency: Continue Cardene at this time to maintain blood pressure systolic between 170 and 180, will likely transition to oral therapy over the course of the next 12-24 hr. Discharge Plan: [facility] Plan to discharge in: Greater than 2 days - Advance Directives Does patient have a Living Will: No Does patient have a Durable POA for Healthcare: No - Code Status/Comfort Care Code Status Assessed: Yes (Full code) Critical Care: No Time Spent Managing Pts Care (In Minutes): 55 <Juan Carlos Marsh - Last Filed: 05/17/20 21:00> - Plan Case addressed with nurse practitioner in detail. Agree with plan of care. Continue stroke protocol workup. Please see note for details. <Mal Olivia - Last Filed: 05/18/20 09:49>
[2020-05-17 21:13] LABS: Urine Blood NEGATIVE (NEG); Urine Glucose NEGATIVE (NEG); Urine Protein NEGATIVE (NEG); Urine pH 7.5 (5.0-7.0)
[2020-05-17] MEDS ORDERED: ONDANSETRON 4 MG/2 ML VIAL IV PRN (23:13)
[2020-05-17] MEDS ORDERED: ACETAMINOPHEN 500 MG TAB PO PRN (23:13)
[2020-05-17] MEDS ORDERED: ATORVASTATIN 40 MG TAB PO SCH (23:13)
[2020-05-17] MEDS ORDERED: Nicardipine in Saline, Iso-Osm 20 MG/200 ML IV.SOLN. IV PRN (23:13)
[2020-05-18 01:33] VITALS: O2SAT 98; BMI 26.6
[2020-05-18 04:15] LABS: Absolute Lymphocytes (CBC) 1.8 K/uL (0.7-4.9); Basophils % 0.8 % (0-1.3); Lymphocytes % 26.4 % (15.3-44.8); RBC Red Blood Cell Count 4.11 M/uL (3.86-4.86)
[2020-05-18 04:49] LABS: ALT/SGPT 18 U/L (12-78); Albumin 3.3 g/dL (3.4-5.0); Alkaline Phosphatase 75 U/L (45-117); BUN Blood Urea Nitrogen 13 mg/dL (7-18); Bicarbonate 29 mmol/L (21-32); Bilirubin Total 0.7 mg/dL (0.2-1.0); Glucose Level 104 mg/dL (74-106); HDL Cholesterol 45 mg/dL (40-60); LDL Cholesterol, Calculated 103 (<130); Protein, Total 6.7 g/dL (6.4-8.2); Sodium Level 143 mmol/L (136-145); Troponin I < 0.02 ng/mL (0.0-0.045)
[2020-05-18 04:50] LABS: AST/SGOT 24 U/L (15-37); Magnesium 1.9 mg/dL (1.8-2.4); Potassium 3.8 mmol/L (3.5-5.1)
[2020-05-18 06:09] LABS: Urine Appearance CLEAR; Urine Bilirubin NEGATIVE (NEG); Urine Blood NEGATIVE (NEG); Urine Color YELLOW; Urine Glucose NEGATIVE (NEG); Urine Protein NEGATIVE (NEG); Urine pH 7.5 (5.0-7.0)
[2020-05-18 06:14] LABS: Urine Microscopic Reflex ORDER UMIC
[2020-05-18 06:39] LABS: Urine Bacteria NONE SEEN /HPF (<20); Urine RBC NONE SEEN /HPF (NONE SEEN)
[2020-05-18] MEDS ORDERED: ASPIRIN EC 81 MG TAB PO SCH (09:00)
[2020-05-18] MEDS ORDERED: FOLIC ACID 1 MG TABLET PO SCH (09:00)
--- NOTE | 2020-05-18 09:47 | P.PN ---
Subjective Date of Service: 05/18/20 Primary Care Provider: Dr. Leone Chief Complaint: dysphasia Subjective: Other (Patient still with expressive aphasia. Patient with permissible hypertension. No chest pain, shortness of breath.) Physical Examination - Vital Signs Temperature: 98.1 F Blood Pressure: 170/59 Pulse: 76 Respirations: 15 Pulse Ox (%): 98 - Physical Exam General: Alert, In no apparent distress, Oriented x3, Cooperative HEENT: Atraumatic Neck: Supple Respiratory: Clear to auscultation bilaterally, Normal air movement Cardiovascular: Normal pulses, Regular rate/rhythm Gastrointestinal: Normal bowel sounds, Soft and benign, Non-distended, No masses, No rebound, No guarding Neurological: Normal strength at 5/5 x4 extr, Normal tone, Normal affect, Abnormal speech (Expressive aphasia) - Studies Laboratory Data (last 24 hrs) 05/17/20 19:30: PT 11.5, INR 0.97 05/17/20 19:30: WBC 6.2, Hgb 13.3, Hct 39.6, Plt Count 231 05/17/20 19:30: Sodium 143, Potassium 3.9, BUN 15, Creatinine 0.99, Glucose 110 H, Magnesium 1.9, Total Bilirubin 0.6, AST 18, ALT 18, Alkaline Phosphatase 83 Medications List Reviewed: Yes Assessment & Plan Discharge Plan: Home Plan to discharge in: 48 Hours Physician Review Additional Text: Impression: Expressive aphasia suspect CVA verses hypertensive emergency with encephalopathy Possible underlying CHF Plan: Expressive aphasia suspect CVA versus hypertensive emergency with encephalopathy: Patient admitted for further evaluation and treatment. Patient off IV Cardene drip. Continue permissive hypertension. Maintain blood pressure systolic around 160-180. Will restart losartan but at a lower dose of 25 mg 1 pill twice daily. Hold if systolic less than 160. CT negative. Continue with stroke protocol workup. Patient NPO. Speech to evaluate. Physical therapy/occupational therapy to evaluate as well. LDL 103. Continue aspirin, folic acid and Lipitor. Await stroke protocol MRI, echocardiogram, and carotid Doppler. Will discuss case with Neurology. Will continue to reassess and monitor closely. Need to obtain more information from family. Will discuss further with Neurology after workup. Possible underlying CHF: See x-ray showed possible CHF. Check echocardiogram. Recheck chest x-ray. Patient not requiring any oxygen at this time. pre Time Spent Managing Pts Care (In Minutes): 55
--- NOTE | 2020-05-18 10:50 | RAD REPORT ---
EXAM DESCRIPTION: MRI - Brain W/Wo Cont - 05/18/2020 9:30 am CLINICAL HISTORY: dysphasia, AMS Headache, drowsiness, CVA symptomology COMPARISON: MRA Head Wo Cont dated 05/18/2020; MRA Neck W/Wo Cont dated 05/18/2020; Ct Stroke Brain Wo Cont dated 05/17/2020 TECHNIQUE: Multi-sequence, multiplanar MR imaging of the brain was performed with contrast. FINDINGS: No intracranial hemorrhage, hydrocephalus, or extra-axial fluid collection.Moderate T2 and FLAIR hyperintensity is seen in the periventricular and deep white matter. No edema or shift of midl ine structures. No intracranial mass. DWI is negative for acute CVA. The midline structures are normally formed. Mastoid air cells and paranasal sinuses are clear. Post-contrast images show no abnormal enhancement to suggest tumor or infection. IMPRESSION: Negative for acute CVA or other acute intracranial abnormality. No pathologic post-contrast enhancement suspected.
--- NOTE | 2020-05-18 10:53 | RAD REPORT ---
EXAM DESCRIPTION: MRI - MRA Head Wo Cont - 05/18/2020 9:29 am CLINICAL HISTORY: dysphasia, AMS CVA COMPARISON: Ct Stroke Brain Wo Cont dated 05/17/2020 FINDINGS: 3D noncontrast [id number] MR angiography of the [place] was performed. No aneurysm or vascular malformation is seen. Moderate stenosis is seen involving the left M1 segment . Forward flow seen in codominant vertebral arteries. The visualized dural venous sinuses appear patent. IMPRESSION: Moderate grade stenosis is suspected involving the left M1 segment.
--- NOTE | 2020-05-18 10:59 | RAD REPORT ---
EXAM DESCRIPTION: MRI - MRA Neck W/Wo Cont - 05/18/2020 9:29 am CLINICAL HISTORY: dysphasia, AMS Headache, drowsiness, CVA symptomology COMPARISON: No comparisons FINDINGS: Contrast enhance 2D [id number] MR angiography of the neck vessels was performed. The left aortic arch is identified. No significant common carotid artery flow-limiting stenosis is seen. There is a significant stenosis suspected involving the left carotid bulb estimated at 70-80 % based on NASCET criteria. The right internal carotid artery is tortuous with mild smooth narrowing of the proximal left interna l carotid artery, estimated less than 50% based on NASCET criteria. Antegrade flow seen in both vertebral arteries. IMPRESSION: 70-80% stenosis estimated involving the left carotid bulb based on NASCET criteria.
--- NOTE | 2020-05-18 11:55 | ECHO ---
HEIGHT: 5 ft 5 in WEIGHT: 160 lb 0 oz DATE OF STUDY: 05/18/[address]: Juan Carlos Marsh NP 2-DIMENSIONAL: YES M.MODE: YES DOPPLER: YES COLOR FLOW: YES TDS: NO PORTABLE: NO DEFINITY: NO BUBBLE STUDY: NO DIAGNOSIS: HYPERTENSION CARDIAC HISTORY: CATHERIZATION: NO SURGERY: NO PROSTHETIC VALVE: NO PACEMAKER: NO MEASUREMENTS (cm) DIASTOLIC (NORMALS) SYSTOLIC (NORMALS) IVSd 1.0 (0.6-1.2) LA Diam (1.9-4.0) LVEF 55-60% LVIDd 4.8 (3.5-5.7) LVIDs 2.8 (2.0-3.5) %FS 40% LVPWd 1.0 (0.6-1.2) Ao Diam 3.0 (2.0-3.7) 2 DIMENSIONAL ASSESSMENT: RIGHT ATRIUM: NORMAL LEFT ATRIUM: NORMAL RIGHT VENTRICLE: NORMAL LEFT VENTRICLE: NORMAL TRICUSPID VALVE: NORMAL MITRAL VALVE: NORMAL PULMONIC VALVE: NORMAL AORTIC VALVE: NORMAL PERICARDIAL EFFUSION: SMALL AORTIC ROOT: NORMAL LEFT VENTRICULAR WALL MOTION: NORMAL. DOPPLER/COLOR FLOW: NORMAL. COMMENTS: NORMAL LEFT VENTRICULAR EJECTION FRACTION 55-60%. NORMAL WALL MOTION. SMALL PERICARDIAL EFFUSION. TECHNOLOGIST: MOISES LYNN
[2020-05-18 12:08] VITALS: TEMP 98
--- NOTE | 2020-05-18 12:28 | RAD REPORT ---
EXAM DESCRIPTION: US - CP - 05/18/2020 12:09 pm CLINICAL HISTORY: poss CVA Headache, drowsiness, CVA symptomology COMPARISON: MRA Neck W/Wo Cont dated 05/18/2020 TECHNIQUE: Real-time sonographic evaluation of both carotid systems was performed. Doppler interroga tion was performed with waveform tracing bilaterally. FINDINGS: Normal high resistance waveforms are noted in both external carotid arteries. The common c arotid arteries and internal carotid arteries show normal low resistance waveforms. Moderate to severe hard plaquing is seen involving the left carotid bulb. Turbulent flow is seen thro ugh the left carotid bulb with elevated peak systolic velocity measurement noted measuring 180 cm/sec ond and elevated left ICA/ CCA ratio 3.1. Stenosis is visually estimated at 70-80%. Moderate hard becka que is seen involving the right carotid bulb without hemodynamically significant stenosis. Antegrade flow seen in both vertebral arteries. IMPRESSION: Atherosclerotic plaquing is seen involving both carotid bulbs, more severe on the left. A hemodynamically significant stenosis is present at the level the left carotid bulb, estimated at 70 -80% based on NASCET criteria.
--- NOTE | 2020-05-18 12:34 | RAD REPORT ---
EXAM DESCRIPTION: RAD - Chest Single View - 05/18/2020 12:24 pm CLINICAL HISTORY: follow up possible CHF Chest pain. COMPARISON: Chest Single View dated 05/17/2020; Chest Single View dated 01/13/2019; CHEST PA AND LAT 2 VIEW dated 04/09/2015; CHEST PA AND LAT 2 VIEW dated 08/04/2014 FINDINGS: Portable technique limits examination quality. The lungs are grossly clear. The heart is upper limit of normal in size. No displaced fractures. IMPRESSION: No acute intrathoracic process suspected.
--- NOTE | 2020-05-18 15:36 | P.DS ---
Admission Date: 05/17/20 Discharge Date: 05/18/20 Primary Care Provider: Dr. Leone Disposition: ROUTINE DISCHARGE Discharge Condition: GOOD Reason for Admission: dysphasia Consultations: Neurology-Dr. Graham Procedures: MRI Brain: FINDINGS: No intracranial hemorrhage, hydrocephalus, or extra-axial fluid collection.Moderate T2 and FLAIR hyperintensity is seen in the periventricular and deep white matter. No edema or shift of midline structures. No intracranial mass. DWI is negative for acute CVA. The midline structures are normally formed. Mastoid air cells and paranasal sinuses are clear. Post-contrast images show no abnormal enhancement to suggest tumor or infection. IMPRESSION: Negative for acute CVA or other acute intracranial abnormality. No pathologic post-contrast enhancement suspected. MRA neck: FINDINGS: Contrast enhance 2D [id number] MR angiography of the neck vessels was performed. The left aortic arch is identified. No significant common carotid artery flow-limiting stenosis is seen. There is a significant stenosis suspected involving the left carotid bulb estimated at 70- 80 % based on NASCET criteria. The right internal carotid artery is tortuous with mild smooth narrowing of the proximal left internal carotid artery, estimated less than 50% based on NASCET criteria. Antegrade flow seen in both vertebral arteries. IMPRESSION: 70-80% stenosis estimated involving the left carotid bulb based on NASCET criteria. MRA brain: FINDINGS: No intracranial hemorrhage, hydrocephalus, or extra-axial fluid collection.Moderate T2 and FLAIR hyperintensity is seen in the periventricular and deep white matter. No edema or shift of midline structures. No intracranial mass. DWI is negative for acute CVA. The midline structures are normally formed. Mastoid air cells and paranasal sinuses are clear. Post-contrast images show no abnormal enhancement to suggest tumor or infection. IMPRESSION: Negative for acute CVA or other acute intracranial abnormality. No pathologic post-contrast enhancement suspected. Carotid doppler: FINDINGS: Normal high resistance waveforms are noted in both external carotid arteries. The common carotid arteries and internal carotid arteries show normal low resistance waveforms. Moderate to severe hard plaquing is seen involving the left carotid bulb. Turbulent flow is seen through the left carotid bulb with elevated peak systolic velocity measurement noted measuring 180 cm/second and elevated left ICA/ CCA ratio 3.1. Stenosis is visually estimated at 70-80%. Moderate hard plaque is seen involving the right carotid bulb without hemodynamically significant stenosis. Antegrade flow seen in both vertebral arteries. IMPRESSION: Atherosclerotic plaquing is seen involving both carotid bulbs, more severe on the left. A hemodynamically significant stenosis is present at the level the left carotid bulb, estimated at 70-80% based on NASCET criteria. ECHO: EF 55% 2 DIMENSIONAL ASSESSMENT: RIGHT ATRIUM: NORMAL LEFT ATRIUM: NORMAL RIGHT VENTRICLE: NORMAL LEFT VENTRICLE: NORMAL TRICUSPID VALVE: NORMAL MITRAL VALVE: NORMAL PULMONIC VALVE: NORMAL AORTIC VALVE: NORMAL PERICARDIAL EFFUSION: SMALL AORTIC ROOT: NORMAL LEFT VENTRICULAR WALL MOTION: NORMAL. DOPPLER/COLOR FLOW: NORMAL. COMMENTS: NORMAL LEFT VENTRICULAR EJECTION FRACTION 55-60%. NORMAL WALL MOTION. SMALL PERICARDIAL EFFUSION. CXR: FINDINGS: Portable technique limits examination quality. The lungs are grossly clear. The heart is upper limit of normal in size. No displaced fractures. IMPRESSION: No acute intrathoracic process suspected. Medical problem list: Expressive aphasia likely secondary to hypertensive emergency with HTN encephalopathy complicated with underlying dementia Chronic diastolic CHF with ejection fraction 55%, echo also showing small pericardial effusion Left carotid bulb stenosis, 70-80%% Hyperlipidemia Brief History of Present Illness: 80-year-old female with reported history of hypertension presented to the emergency department for dysphasia and altered mental status. Patient stays at assisted living facility and there is reported by a friend that she was standing in started to bend down to her knees when she almost fell to the ground at that time she was noted to have some difficulty speaking along with some Jerky movements baseline mental status is alert, oriented x4 symptoms started at 6:30 p.m. today. Patient was initially very hypertensive systolic blood pressure 2/0 7 evaluated in the emergency department with CT head brain without contrast which was negative for any acute findings, labs unremarkable. Case was discussed with neurology by ED provider who suspected possible PRES syndrome related to hypertension. Patient not a candidate for t-PA in due to severe hypertension suspected PRES syndrome. Neurology recommends inpatient admission with Cardene drip, titrate blood pressure to 170 to 180s systolic with stroke workup. Hospital Course: Patient presented with expressive aphasia. Patient did not meet criteria for tPA due to elevated blood pressure. Case was discussed with Neurology. Patient was admitted for further evaluation. Patient was eventually taken off Cardene drip. MRI showed no acute stroke. MRA neck showed left carotid bulb stenosis. This was confirmed with carotid Doppler. Echocardiogram shows normal ejection fraction but small pericardial effusion noted. Patient seen and evaluated by physical therapy. No deficits noted. Patient seen and evaluated by speech. No deficit swallowing. Patient still with mild expressive aphasia. Case discussed in detail with Neurology. Her condition is complicated with likely underlying dementia. Likely vascular dementia. No need for further intervention at this time. At discharge patient will continue with Plavix 75 mg daily, losartan 50 mg 1 pill twice daily, folic acid 1 mg daily, Lipitor 40 mg daily, and Aricept 5 mg daily. Recommend follow up with neurology within 1 week. Education on hypertensive emergency, dementia will be provided. Patient with hypertension. As mentioned above patient presented with hypertensive emergency. This has resolved. At discharge patient continue with losartan 50 mg 1 pill twice daily. For this week blood pressure should remain around 150-170 systolic. Patient may need to hold her medication during this time. After next week blood pressures should slowly be reached to a target of less than 130/80. This can be done with the help of her PCP or neurology. As mentioned above patient with left carotid bulb stenosis. Patient with hyperlipidemia as well. At discharge patient will continue with Lipitor 40 mg daily. Recommend to recheck fasting lipid panel in 4-6 weeks to monitor her progress. If LDL still greater than 70 then Lipitor will need to be increased. Recommend follow up with cardiology to further monitor and address. Patient may require further evaluation with Cardiology and possibly with cardiovascular surgery. As mentioned above patient with chronic diastolic CHF with ejection fraction of 55%. Echo shows small pericardial effusion. No chest pain, shortness of breath noted. At discharge recommend follow up with cardiology within 1 week. Recommend to recheck echocardiogram in 1-2 weeks to monitor resolution. Patient may continue with a 1500 cc per day fluid restriction and low-salt diet. At discharge will recommend to continue Lasix 20 mg daily. Recommend to monitor her weight daily. If her weight increases by more than 5 lb patient then her diuretic therapy may need to be adjusted. This can be done with the help of her PCP or cardiology. Home medications reviewed. Patient previously taking baclofen. Will recommend to discontinue this medication. Vital Signs/Physical Exam: Temp Pulse Resp BP Pulse Ox 98.0 F 91 H 16 185/74 H 98 05/18/20 12:00 05/18/20 14:00 05/18/20 14:00 05/18/20 14:00 05/18/20 14:00 General: Alert, In no apparent distress, Oriented x3, Cooperative HEENT: Atraumatic Neck: Supple Respiratory: Clear to auscultation bilaterally, Normal air movement Cardiovascular: Normal pulses, Regular rate/rhythm Gastrointestinal: Normal bowel sounds, Soft and benign, Non-distended, No tenderness, No masses, No rebound, No guarding Musculoskeletal: No erythema, No tenderness, No warmth Neurological: Normal strength at 5/5 x4 extr, Normal tone, Normal affect, Abnormal speech (expressive aphasia) Laboratory Data at Discharge: WBC 6.6 K/uL (4.3-10.9) 05/18/20 03:28 Hgb 12.4 g/dL (12.0-15.0) 05/18/20 03:28 Hct 38.0 % (36.0-45.0) 05/18/20 03:28 Plt Count 237 K/uL (152-406) 05/18/20 03:28 PT 11.5 SECONDS (9.5-12.5) 05/17/20 19:30 INR 0.97 05/17/20 19:30 Sodium 143 mmol/L (136-145) 05/18/20 03:28 Potassium 3.8 mmol/L (3.5-5.1) 05/18/20 03:28 BUN 13 mg/dL (7-18) 05/18/20 03:28 Creatinine 0.81 mg/dL (0.55-1.3) 05/18/20 03:28 Glucose 104 mg/dL (74-106) 05/18/20 03:28 Magnesium 1.9 mg/dL (1.8-2.4) 05/18/20 03:28 Total Bilirubin 0.7 mg/dL (0.2-1.0) 05/18/20 03:28 AST 24 U/L (15-37) 05/18/20 03:28 ALT 18 U/L (12-78) 05/18/20 03:28 Alkaline Phosphatase 75 U/L (45-117) 05/18/20 03:28 Troponin I < 0.02 ng/mL (0.0-0.045) 05/18/20 03:28 Triglycerides 126 mg/dL (<150) 05/18/20 03:28 Cholesterol 173 mg/dL (<200) 05/18/20 03:28 HDL Cholesterol 45 mg/dL (40-60) 01/22/21 03:28 Cholesterol/HDL Ratio 3.84 05/18/20 03:28 Home Medications: Atorvastatin Calcium [Lipitor] 40 mg PO BEDTIME #30 tablet 05/18/20 Clopidogrel Bisulfate [Plavix] 75 mg PO DAILY #30 tablet 05/18/20 Donepezil HCl [Aricept] 5 mg PO DAILY #30 tablet 05/18/20 Folic Acid 1 mg PO DAILY #90 tablet 05/18/20 Losartan Potassium [Cozaar*] 50 mg PO BID #60 tablet 05/18/20 New Medications: Donepezil HCl [Aricept] 5 mg PO DAILY #30 tablet Losartan Potassium [Cozaar*] 50 mg PO BID #60 tablet Folic Acid 1 mg PO DAILY #90 tablet Atorvastatin Calcium [Lipitor] 40 mg PO BEDTIME #30 tablet Clopidogrel Bisulfate [Plavix] 75 mg PO DAILY #30 tablet Patient Discharge Instructions: Patient presented with expressive aphasia. Patient did not meet criteria for tPA due to elevated blood pressure. Case was discussed with Neurology. Patient was admitted for further evaluation. Patient was eventually taken off Cardene drip. MRI showed no acute stroke. MRA neck showed left carotid bulb stenosis. This was confirmed with carotid Doppler. Echocardiogram shows normal ejection fraction but small pericardial effusion noted. Patient seen and evaluated by physical therapy. No deficits noted. Patient seen and evaluated by speech. No deficit swallowing. Patient still with mild expressive aphasia. Case discussed in detail with Neurology. Her condition is complicated with likely underlying dementia. Likely vascular dementia. No need for further intervention at this time. At discharge patient will continue with Plavix 75 mg daily, losartan 50 mg 1 pill twice daily, folic acid 1 mg daily, Lipitor 40 mg daily, and Aricept 5 mg daily. Recommend follow up with neurology within 1 week. Education on hypertensive emergency, dementia will be provided. Patient with hypertension. As mentioned above patient presented with hypertensive emergency. This has resolved. At discharge patient continue with losartan 50 mg 1 pill twice daily. For this week blood pressure should remain around 150-170 systolic. Patient may need to hold her medication during this time. After next week blood pressures should slowly be reached to a target of less than 130/80. This can be done with the help of her PCP or neurology. As mentioned above patient with left carotid bulb stenosis. Patient with hyperlipidemia as well. At discharge patient will continue with Lipitor 40 mg daily. Recommend to recheck fasting lipid panel in 4-6 weeks to monitor her progress. If LDL still greater than 70 then Lipitor will need to be increased. Recommend follow up with cardiology to further monitor and address. Patient may require further evaluation with Cardiology and possibly with cardiovascular surgery. As mentioned above patient with chronic diastolic CHF with ejection fraction of 55%. Echo shows small pericardial effusion. No chest pain, shortness of breath noted. At discharge recommend follow up with cardiology within 1 week. Recommend to recheck echocardiogram in 1-2 weeks to monitor resolution. Patient may continue with a 1500 cc per day fluid restriction and low-salt diet. At discharge will recommend to continue Lasix 20 mg daily. Recommend to monitor her weight daily. If her weight increases by more than 5 lb patient then her diuretic therapy may need to be adjusted. This can be done with the help of her PCP or cardiology. Home medications reviewed. Patient previously taking baclofen. Will recommend to discontinue this medication. Diet: AHA Activity: Ad kevon Followup: Chirag Graham MD [ASSOCIATE-ACTIVE - CAN ADMIT] - Unknown,U [Primary Care Provider] - Time spent managing pt's care (in minutes): 55
[2020-05-18 15:37] VITALS: BP 150/87
--- NOTE | 2020-05-18 18:38 | CON ---
Reason For Consultation: Consultation called because of altered mental status after near syncopal ep isode and hypertensive emergency. History Of Present Illness: Ms. Dinh is an 80-year-old right-handed patient, who is in [facility] after an episode where she slumped down, was somewhat confused, and very elevated blood p ressures. I spoke with the patient and her daughter, who was at the bedside. The patient has a hist ory of hypertension, congestive heart failure, and possible chronic undiagnosed dementia. The patien loki was next to a friend, standing when she suddenly felt her knees gave out and she kind of slump towa rds the ground. She denied any colt loss of consciousness, any tonic or clonic activity, but there was some potential jerking movements. She did not bite her tongue and did not again loose bowel or b ladder control. She did have elevated blood pressure, systolics in the 200s, and she came into [facility]. Head CT scan was negative for any acute ischemic hemorrhagic change. Subsequent bra in MRI did identify moderate small-vessel ischemic disease, but no acute ischemic or hemorrhagic stro ke. Her carotid artery ultrasound did reveal hemodynamically significant stenosis of the left caroti d bulb, estimated at 70-80%, with moderate plaque in the right carotid bulb without hemodynamically s ignificant stenosis on that side. Her neck magnetic resonance angiogram did confirm 70-80% stenosis in the left carotid bulb by NASCET criteria. There was less than 50% on the left internal carotid ar jessie. Her brain MRI, as indicated, did show no acute ischemic or hemorrhagic change, but there was m oderate T2 and FLAIR hyperintensity in the periventricular deep white matter consistent with small ve ssel ischemic disease. The patient's daughter said that she would forget to take her antihypertensiv e medications at times and would have elevated blood pressures. Her blood work was completely normal in terms of a complete blood count with differential. Her basic metabolic panels show slightly elevated chloride of 109, GFR mildly low at 68 with a normal creatini ne. Liver function studies were normal. Total cholesterol was 173, HDL cholesterol 45, LDL choleste rol 103. Thyroid function studies were normal. Urinalysis did show trace esterase with white blood cells slightly elevated, bacteria were none. She did receive IV fluids and appeared to be still some what confused, but improved compared to her admission. Past Medical History: As indicated. Past Surgical History: Not known. Family History: No dementia or seizures. Social History: No alcohol, tobacco, or IV drug use. The patient's daughter at bedside. Actually a fter discharge, the patient will be with her daughter. Medications: In the hospital received aspirin 81 mg daily, Lipitor 40 mg at bedtime, folic acid 1 mg daily, Cozaar 25 mg twice daily. Review of Systems: Aside from mentioned, she has no recent fevers, chills, nausea, vomiting, myalgias, arthralgias, rash , headache, weight change. No psychiatric complaints. No gastrointestinal or genitourinary issues. Physical Examination: Vital Signs: Blood pressure 150/87, pulse of 91, respiratory rate 14, temperature 98, oxygen saturat ion 98%, weight 160 pounds, height 5 feet 5 inches, BMI 26.6. General: Ms. Dinh is resting in bed. She is alert and oriented to person, place, situation, an d time. She missed the day of the week. She was unable to spell the word world in reverse, unable t o do serial 7 subtraction. She did name objects properly. She did follow two-step commands properly . She was unable to recall 3 objects after 3 minutes spontaneously, but did so with 1-2 clues to rec all the words. Mini-mental status exam, she got about 20/30. On cranial nerve exam, she has no foca l deficits, 2 through 12. Motor, she has no focal weakness in the upper and lower extremities. Sens ory exam, mild stocking-glove loss to light touch and temperature. Reflexes are 1+ in the upper and lower extremities and 0 at the heels. Otherwise, coordination intact in the upper and lower extremit ies. Gait, she will be ambulated with physical therapist. Assessment: Ms. Dinh is an 80-year-old patient, who had marked hypertension at her admission, p ossibly producing an episode of posterior reversible encephalopathy. She had a systolic blood pressu re of 200 and diastolic of 70, and the patient has been forgetting medications. She likely has a chr onic cognitive impairment, probably vascular dementia, especially given her MRI findings and her montessori toddler teacher karley not well-controlled hypertension. She does have slightly elevated LDL. Otherwise, blood sugars are in good range. Plan: 1.May start Aricept or Namenda 5 mg daily. 2.Aggressive management of long-term at least of hypertension and dyslipidemia. 3.The patient's daughter should assist with her medications, so she can be more compliant. 4.Hydration of water 8 glasses daily. 5.Moderate aerobic exercise 30 minutes daily. 6.She was instructed on the importance of changing her diet to reduce the red meat, organ meat, butt er or milk cheese, eggs and increase the intake of nuts, grains, fruits, vegetables. 7.She was instructed to follow up with Dr. Graham in clinic in 1 month after her [facility]. MANUEL/LESLIE Voice ID: [id number] Report ID: [id number]
[2020-05-18] MEDS ORDERED: LOSARTAN POTASSIUM 50 MG TABLET PO SCH (21:00)
== END 2020-05-18 17:00 | disposition home or self-care (01) | DRG 304 ==
LOC: ER 19:08 → ERHOLD 20:53
PROVIDERS: ADMIT Family Medicine; ATTEND Family Medicine
DX: I16.1 Hypertensive emergency (principal); I67.83 Posterior reversible encephalopathy syndrome; I50.32 Chronic diastolic (congestive) heart failure; R47.01 Aphasia; I67.4 Hypertensive encephalopathy; I11.0 Hypertensive heart disease with heart failure; E78.5 Hyperlipidemia, unspecified; I65.22 Occlusion and stenosis of left carotid artery; F01.50 Vascular dementia, unspecified severity, without behavioral disturbance, psychotic disturbance, mood disturbance, and anxiety; Z88.8 Allergy status to other drugs, medicaments and biological substances; Z79.02 Long term (current) use of antithrombotics/antiplatelets; Z79.899 Other long term (current) drug therapy; Z20.822 Contact with and (suspected) exposure to COVID-19
CPT/HCPCS: 36415; 70450; 70544; 70549; 70553; 71045; 80048; 80053; 80061; 80076; 81003; 81015; 82947; 83735; 83880; 84439; 84443; 84484; 85025; 85610; 87077; 87086; 87088; 87186; 92523; 92610; 93005; 93306; 93880; 96374; 97161; 99285; A9577; U0003

== ENCOUNTER 2021-06-05 10:19 | Emergency (ER) | payer OTHER ==
--- OUTSIDE RECORDS SUMMARY | 2021-06-05 10:24 | XMS REPORT | Continuity of Care Document ---
:1940 Author Organization [facility] t Address [address] [place] [address] Dr. Conner [address] [place] [id number] Care Team Providers Name Role Phone Terri Hernandez MD Primary Care Physician Angelita Leone Attending Clinician Unavailable TERRI HERNANDEZ Attending Clinician Unavailable Chanda FAJARDO Attending Clinician Unavailable JANESSA WASHBURN Attending Clinician Unavailable Terri Hernandez MD Attending Clinician Sushil TALAVERA-Kori Attending Clinician ARNULFO Attending Clinician Unavailable [id number] Attending Clinician Unavailable Stephen-Mbayo_A_AH Attending Clinician Unavailable Stephen-Mbayo_A_AH Admitting Clinician Unavailable Payers Payer Name Policy Type Policy Number Effective Date Expiration Date S grayson [employer] MAPD - HMO 7 [id number] R2T 00:00:00 HU[employer]NA MEDICARE 7 [id number] 2021 [id number] GOLD 00:00:00 PLUS 2021 [place]LL[place]ARE OF [place] - [id number] 2019 [place]ANPLUS 00:00:00 (MEDICARE REPLACEMENT/ADVANT AGE - HMO) Problems Condition Condition Condition Status Onset Resolution Last Treating Co mments Source Name Details Category Date Date Treatment Clinician Date Chronic Chronic Disease Active [place] kidney kidney 6-25 Seybold disease, disease, 00:00: stage 3a stage 3a 00 Cerebral Cerebral Disease Active Kelse y atrophy atrophy 6-24 Seybold 00:00: 00 Mediastina Mediastina Disease Active [place] l goiter l goiter 5-24 Seybol d 00:00: 00 Vascular Vascular Disease Active Kelse y dementia dementia 1-28 Seybol d without without 00:00: behavioral behavioral 00 disturbanc disturbanc e e Chronic Chronic Disease Active [place] 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:00: failure failure 00 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 00 Hypertensi Hypertensi Disease Active [place] ve heart ve heart 28 Seybol d and renal and renal 00:00: disease disease 00 with with congestive congestive heart heart failure failure Localized Localized Disease Active 2019-04 Zackary bailey swelling swelling 1-30 Seybol d of both of both 00:00: lower legs lower legs 00 Hyperchole Hyperchole Problem Active V illage sterolemia sterolemia 3-16 Fa tammie 00:00: Practic 00 e Essential Essential Problem Active Maryan gerson hypertensi Hypertensi 3-16 Fa tammie on on 00:00: Practic 00 e Osteoarthr Osteoarthr Disease Active [place] itis itis 5-03 Seybold 00:00: 00 Pure Pure Disease Active 2009-04 [place] hyperchole hyperchole 1-12 Se ybold sterolemia sterolemia 00:00: 00 Scoliosis Scoliosis Disease Active Zackary sey 7-29 Seybold 00:00: 00 Osteopenia Osteopenia Disease Active [place] fields 6-07 Seybold 00:00: 00 Essential Essential Disease Active 2008-04 Zackary y hypertensi hypertensi 1-23 Se ybold on, benign on, benign 00:00: 00 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 [facility] Mixed Mixed Problem Active [facility] hyperlipid hyperlipid Alyce kes - emia emia Gustabooria l [facility] GERD GERD Problem Active [facility] without without [facility] - esophagiti esophagiti Me moria s s l [facility] At risk At risk Problem Active [facility] for falls for falls Luke s - [facility] HTN, goal HTN, goal Problem Active [facility] below below [facility] - 150/90 150/90 [facility] Rash Rash Problem [facility] Allergic Allergic Problem [facility] reaction, reaction, Luke [facility] - initial initial Memoria encounter encounter l Outpati ent Clinics Osteopenia Osteopenia Problem Active [facility] , , [facility] - unspecifie unspecifie Me moria d location d location l Outpati ent Clinics Migraine Migraine Problem Active [facility] with aura with aura Luke s - and and Memoria without without l status status Outpati migrainosu migrainosu en t s, not s, not Clinics intractabl intractabl e e Migraine Migraine Problem [facility] without without [facility] - aura and aura and Memori a without without l status status Outpati migrainosu migrainosu en t s, not s, not Clinics intractabl intractabl e e Hypercalce Hypercalce Problem Active [facility] Vitamin D Vitamin D Problem Active [facility] deficiency deficiency Alyce kes - [facility] ent Clinics Hypomagnes Hypomagnes Problem Active [facility] emia emia [facility] Prediabete Prediabete Disease Active K diamond vera Coleenlizette Allergies, Adverse Reactions, Alerts Allergy Allergy Status Severity Reaction(s) Onset Inactive Treating Comm ents Source Name Type Date Date Clinician Calcium Propensi Active Nausea and 0 Zackary bailey Acetylsa ty to Vomiting 1-21 Seybol d licylate adverse 00:00: reaction 00 s Aspirin Drug Active Nausea and 0 Kelse y Intolera Vomiting 6-05 Seybol d nce 00:00: 00 Aspirin Allergy Active Anaphylaxis Maryan gerson to Family substanc Practic e e Social History Social Habit Start Date Stop Date Quantity Comments Source History of Cigarette Smoker [place]ira trejojailynbhupendra tobacco use Alcohol intake 2021-03-22 2021-03-22 Current [place] Avalos azalia 00:00:00 00:00:00 non-drinker of alcohol (finding) Sex Ass[birth year] At [birth year] [place] hensley 00:00:00 00:00:00 Smoking Status Start Date Stop Date Source Ex-smoker [place] Garza Never Smoker [facility] Medications Ordered Filled Start Stop Current Ordering Indication Dosage Frequency Signature Comments Components Source Medication Medication Date Date Medication? Clinician (SIG) Name Name Multiple 2020-04 Yes Take by [place] Vitamins-Mi 05-25 mouth Seybold nerals 13:31: (IMMUNE 37 SYSTEM BOOSTER OR) Cholecalcif 2020-04 Yes Take by Zackary y bon 05-25 mouth Seybold (NATURAL 13:31: VITAMIN D-3 37 OR) Folic Acid 2020-04 Yes 1mg Take 1 mg Ke lsey 1 MG oral 05-25 by mouth Seybol d tablet 13:31: daily 37 Ascorbic 2020-04 Yes as [place] Acid 05-25 directed Seybold (Vitamin C) 13:31: 500 MG oral 37 Capsule Calcium 2020-04 Yes 1 tablet [place] Carb-Cholec 05-25 with a Seybol d alciferol 13:31: meal 600-200 37 MG-UNIT oral Tablet Cinnamon 2020-04 Yes as [place] 500 MG oral 05-25 directed Seyb old Capsule 13:31: 37 Collagen-Vi 2020-04 Yes 2 capsules [place] tamin C 05-25 Seybold (Collagen 13:31: Plus 37 Vitamin C) 740-125 MG oral Capsule Glucos-Sulaiman 2020-04 Yes as [place] d-Hyal 05-25 directed Seybold Ac-Ca 13:31: Fructo 37 (Move Free Joint Health Advance) oral Tablet hydroCHLORO 2020-04 Yes 1 capsule K elsey thiazide 05-25 in the Seybold 12.5 MG 13:31: morning oral 37 Capsule Metoprolol 2020-04 Yes 1 tablet Zackary avalos Tartrate 25 05-25 with food Sey bold MG oral 13:31: Tablet 37 [place] 3-6-9 2020-04 Yes as [place] Fatty Acids 05-25 directed Seyb old ([place] 13:31: 3-6-9 37 Complex) oral Capsule Pantoprazol 2020-04 Yes 1{tbl} Take 1 Ke lsey e Sodium 40 05-25 tablet by Sey bold MG oral 13:31: mouth Tablet 37 Delayed Response Saccharomyc 2020-04 Yes 1{capsu 1 capsule [place] es 05-25 le} Seybold boulardii 13:31: (Probiotic) 37 250 MG oral Capsule Selenium 2020-04 Yes 1{tbl} Take 1 Kelse y 100 MCG 05-25 tablet by Seybold oral Tablet 13:31: mouth 37 Simvastatin 2020-04 Yes 1 tablet Ke lsey 20 MG oral 05-25 in the Seybold Tablet 13:31: evening 37 Turmeric 2020-04 Yes as [place] Curcumin 05-25 directed Seybold 500 MG oral 13:31: Capsule 37 Ubiquinone 2020-04 Yes as [place] (Ultra 05-25 directed Seybold COQ10) 75 13:31: MG oral 37 Capsule Valsartan 2020-04 Yes 1{each} 1 each Zackary hernandezy 320 MG oral 05-25 daily Seybold Tablet 13:31: 37 Magnesium 2020-04 Yes 400mg Take 400 Zackary sey oxide 05-25 mg by Seybold (MAG-OX) 13:31: mouth 2 400 MG oral 37 times Tab daily Apoaequorin 2020-04 Yes Take by Zackary avalos (PREVAGEN 05-25 mouth Seybold EXTRA 13:31: daily STRENGTH 37 OR) Multiple 2020-04 Yes Take by [place] Vitamins-Mi 05-25 mouth Seybold nerals 13:31: (IMMUNE 37 SYSTEM BOOSTER OR) Cholecalcif 2020-04 Yes Take by Zackary avalos bon 05-25 mouth Seybold (NATURAL 13:31: VITAMIN D-3 37 OR) Folic Acid 2020-04 Yes 1mg Take 1 mg He lsey 1 MG oral 05-25 by mouth Seybol d tablet 13:31: daily 37 Ascorbic 2020-04 Yes as [place] Acid 05-25 directed Seybold (Vitamin C) 13:31: 500 MG oral 37 Capsule Calcium 2020-04 Yes 1 tablet [place] Carb-Cholec 05-25 with a Seybol d alciferol 13:31: meal 600-200 37 MG-UNIT oral Tablet Cinnamon 2020-04 Yes as [place] 500 MG oral 05-25 directed Seyb old Capsule 13:31: 37 Collagen-Vi 2020-04 Yes 2 capsules [place] tamin C 05-25 Seybold (Collagen 13:31: Plus 37 Vitamin C) 740-125 MG oral Capsule Glucos-Sulaiman 2020-04 Yes as [place] d-Hyal 05-25 directed Seybold Ac-Ca 13:31: Fructo 37 (Move Free Joint Health Advance) oral Tablet hydroCHLORO 2020-04 Yes 1 capsule K elsey thiazide 1-29 in the Seybold 12.5 MG 13:31: morning oral 37 Capsule Metoprolol 2020-04 Yes 1 tablet Zackary y Tartrate 25 05-25 with food Sey bold MG oral 13:31: Tablet 37 [place] 3-6-9 2020-04 Yes as [place] Fatty Acids -29 directed Seyb old ([place] 13:31: 3-6-9 37 Complex) oral Capsule Pantoprazol 2020-04 Yes 1{tbl} Take 1 He michelleey e Sodium 40 - tablet by Sey bold MG oral 13:31: mouth Tablet 37 Delayed Response Saccharomyc 2020-04 Yes 1{capsu 1 capsule [place]ira es - le} Seybold boulardii 13:31: (Probiotic) 37 250 MG oral Capsule Selenium 2020-04 Yes 1{tbl} Take 1 Kelse y 100 MCG - tablet by Seybold oral Tablet 13:31: mouth 37 Simvastatin 2020-04 Yes 1 tablet He lsey 20 MG oral 05-25 in the Seybold Tablet 13:31: evening 37 Turmeric 2020-04 Yes as [place] Curcumin 05-25 directed Seybold 500 MG oral 13:31: Capsule 37 Ubiquinone 2020-04 Yes as [place] (Ultra - directed Seybold COQ10) 75 13:31: MG oral 37 Capsule Valsartan 2020-04 Yes 1{each} 1 each Zackary sey 320 MG oral -29 daily Seybold Tablet 13:31: 37 Magnesium 2020-04 Yes 400mg Take 400 Zackary sey oxide 1-29 mg by Seybold (MAG-OX) 13:31: mouth 2 400 MG oral 37 times Tab daily Apoaequorin 2020-04 Yes Take by Zackary avalos (PREVAGEN -29 mouth Seybold EXTRA 13:31: daily STRENGTH 37 OR) DONEPEZIL 2020-04 Yes TAKE 1 [place] HYDROCHLORI 1-26 TABLET BY Bailey vieyra DE 5 MG 00:00: MOUTH oral Tablet 00 DAILY Baclofen 10 2020-04 Yes [id number] TAKE 1 [place] MG oral 1-26 TABLET(10 Seybold Tablet 00:00: MG) BY 00 MOUTH EVERY 8 HOURS NEEDED FOR PAIN OR SPASMS DONEPEZIL 2020-04 Yes TAKE 1 [place] HYDROCHLORI 1-26 TABLET BY Bailey vieyra DE 5 MG 00:00: MOUTH oral Tablet 00 DAILY Baclofen 2020-04 Yes [id number] TAKE 1 [place] MG oral 1-26 TABLET(10 Seybold Tablet 00:00: MG) BY 00 MOUTH EVERY 8 HOURS NEEDED FOR PAIN OR SPASMS Furosemide 2020-04 Yes TAKE 1 Kelse y 20 MG oral 0-27 TABLET(20 Seyb old Tablet 00:00: MG) BY 00 MOUTH DAILY Clopidogrel 2020-04 Yes TAKE 1 Kathi ey Bisulfate 0-27 TABLET(75 Seybo ld 75 MG oral 00:00: MG) BY Tablet 00 MOUTH DAILY Losartan 2020-04 Yes TAKE 1 [place] Potassium 0-27 TABLET(50 Seybo ld 50 MG oral 00:00: MG) BY Tablet 00 MOUTH TWICE DAILY Rosuvastati 2020-04 Yes [id number] TAKE 1 [place] n Calcium 0-27 TABLET(10 Seybo ld 10 MG oral 00:00: MG) BY Tablet 00 MOUTH DAILY Baclofen 2020-04 Yes [id number] TAKE 1 [place] MG oral 0-27 TABLET(10 Seybold Tablet 00:00: MG) BY 00 MOUTH EVERY 8 HOURS NEEDED FOR PAIN OR SPASMS Furosemide 2020-04 Yes TAKE 1 Kelse y 20 MG oral 0-27 TABLET(20 Seyb old Tablet 00:00: MG) BY 00 MOUTH DAILY Clopidogrel 2020-04 Yes TAKE 1 Kathi ey Bisulfate 0-27 TABLET(75 Seybo ld 75 MG oral 00:00: MG) BY Tablet 00 MOUTH DAILY Losartan 2020-04 Yes TAKE 1 [place] Potassium 0-27 TABLET(50 Seybo ld 50 MG oral 00:00: MG) BY Tablet 00 MOUTH TWICE DAILY Rosuvastati 2020-04 Yes [id number] TAKE 1 [place] n Calcium 0-27 TABLET(10 Seybo ld 10 MG oral 00:00: MG) BY Tablet 00 MOUTH DAILY Furosemide 2020-04 Yes TAKE 1 Kelse y 20 MG oral 0-27 TABLET(20 Seyb old Tablet 00:00: MG) BY 00 MOUTH DAILY Clopidogrel 2020-04 Yes TAKE 1 Kathi ey Bisulfate 0-27 TABLET(75 Seybo ld 75 MG oral 00:00: MG) BY Tablet 00 MOUTH DAILY Losartan 2020-04 Yes TAKE 1 [place] Potassium 0-27 TABLET(50 Seybo ld 50 MG oral 00:00: MG) BY Tablet 00 MOUTH TWICE DAILY Rosuvastati 2020-04 Yes [id number] TAKE 1 [place] n Calcium 0-27 TABLET(10 Seybo ld 10 MG oral 00:00: MG) BY Tablet 00 MOUTH DAILY DONEPEZIL Yes TAKE 1 [place] HYDROCHLORI 9-02 TABLET BY Bailey bold DE 5 MG 00:00: MOUTH oral Tablet 00 DAILY Magnesium Yes 400mg Take 400 Zackary bailey oxide 7-20 mg by Seybold (MAG-OX) 15:50: mouth 2 400 MG oral 01 times Tab daily Apoaequorin Yes Take by Zackary avalos (PREVAGEN 7-20 mouth Seybold EXTRA 15:50: daily STRENGTH 01 OR) Multiple Yes Take by [place] Vitamins-Mi 7-20 mouth Seybold nerals 15:50: (IMMUNE 01 SYSTEM BOOSTER OR) Cholecalcif Yes Take by Zackary avalos bon 7-20 mouth Seybold (NATURAL 15:50: VITAMIN D-3 01 OR) Folic Acid Yes 1mg Take 1 mg Ke lsey 1 MG oral 7-20 by mouth Seybol d tablet 15:50: daily 01 Alendronate Yes [id number] TYAKE 1 [place] Sodium 70 7-15 TABLET BY Seybo ld MG oral 00:00: MOUTH Tablet 00 EVERY 7 DAYS Alendronate Yes [id number] TYAKE 1 [place] Sodium 70 7-15 TABLET BY Seybo ld MG oral 00:00: MOUTH Tablet 00 EVERY 7 DAYS Alendronate Yes [id number] TYAKE 1 [place] Sodium 70 7-15 TABLET BY Seybo ld MG oral 00:00: MOUTH Tablet 00 EVERY 7 DAYS Zoster Vac Yes [id number] One dose [place] Recomb 6-25 now. Seybold Adjuvanted 00:00: Second 50 00 dose given MCG/0.5ML two to six intramuscul months ar Recon AFTER Susp first dose. Zoster Vac Yes [id number] One dose [place] Recomb 6-25 now. Seybold Adjuvanted 00:00: Second 50 00 dose given MCG/0.5ML two to six intramuscul months ar Recon AFTER Susp first dose. Zoster Vac Yes [id number] One dose [place] Recomb 6-25 now. Seybold Adjuvanted 00:00: Second 50 00 dose given MCG/0.5ML two to six intramuscul months ar Recon AFTER Susp first dose. Atorvastati Yes 40mg 40 mg Kelse y n Calcium 1-22 Seybold 40 MG oral 00:00: Tablet 00 Atorvastati Yes 40mg 40 mg Kelse y n Calcium 1-22 Seybold 40 MG oral 00:00: Tablet 00 DONEPEZIL 2020- No 5mg 5 mg [place] HYDROCHLORI 05-18 11-26 Seybold DE 00:00: 00:00 (Aricept) 5 00 :00 MG oral Tablet Magnesium Magnesium No Adrian [address] [facility] Oxide Oxide 16 04-15 Leone as needed [facility] - 00:00: 00:00 Memoria 00 :00 [facility] ent Clinics Clopidogrel Clopidogrel Yes Adrian [address] [facility] Bisulfate Bisulfate [facility] Move Free Move Free Yes Adrian as [facility] Leone directed [facility] Advance l [facility] Metoprolol Metoprolol Yes Adrian [address] Tartrate Tartrate Loene with food [facility] ent [facility] Vitamin C Vitamin C Yes Adrian as [facility] directed [facility] [place] 3-6-9 [place] 3-6-9 Yes Adrian [address] [facility] Complex Complex [facility] directed [facility] Cinnamon Cinnamon Yes Adrian as [facility] directed [facility] Hydrochloro Hydrochloro Yes Adrian [address] [facility] [address] thiazide thiazide Leone in the Luke s - morning [facility] ent Clinics Selenium Selenium Yes Adrian [address] Leone [facility] ent Clinics Calcium + Calcium + Yes Adrian [address] [facility] D3 D3 Leone with a [facility] - meal [facility] ent Clinics Simvastatin Simvastatin Yes Adrian [address] [facility] Leone in the [facility] - evening [facility] ent Clinics Alive Once Alive Once Yes Adrian as [facility] Daily Daily Leone directed [facility] - Womens 50+ Womens 50+ Mem oria l [facility] ent Clinics Hair Skin Hair Skin Yes Adrian as [facility] Nails Nails Leone directed [facility] Probiotic Probiotic Yes Adrian [address] [facility] [facility] Leone [facility] ent [facility] Ultra COQ10 Ultra COQ10 Yes Adrian as [facility] directed [facility] Collagen Collagen Yes Adrian [address] [facility] Plus Plus Leone [facility] - Vitamin C Vitamin C Memor ia l [facility] ent Clinics Turmeric Turmeric Yes Adrian as [facility] Curcumin Curcumin Leone directed Alyce kes - [facility] ent Clinics Pantoprazol Pantoprazol Yes Adrian [address] e Sodium e Sodium Leone [facility] ent [facility] Losartan Losartan Yes Adrian [address] Potassium Potassium Leone [place] - [facility] ent [facility] clopidogrel clopidogrel No 1 Q1D clopidogre [facility] 75 mg 75 mg l 75 mg [...] oral route. simvastatin simvastatin No 1 [facility] 20 mg n 20 mg Family tablet Take tablet Take tablet Practic 1 tablet 1 tablet Take 1 e every day every day tablet by oral by oral every day route. route. by oral route. valsartan valsartan No 1 Q1D valsartan [facility] 320 mg 320 mg 320 mg Family tablet Take tablet Take tablet Practic 1 tablet 1 tablet Take 1 e every day every day tablet by oral by oral every day route. route. by oral route. Immunizations Ordered Immunization Filled Immunization Date Status Commen ts Source Name Name Influenza Virus 2021-02-20 Completed [place] Hernandez ayden Vaccine, 00:00:00 Quadrivalent, High Dose, Age 65 And Up Influenza Virus 2021-02-20 Completed [place] Hernandez ayden Vaccine, 00:00:00 Quadrivalent, High Dose, Age 65 And Up Influenza Virus 2021-02-20 Completed [place] Se ybold Vaccine, 00:00:00 Quadrivalent, High Dose, Age 65 And Up Covid-19 Vaccine 2020-09-04 Completed [place]ira S eybold (Moderna), Mrna-lnp, 00:00:00 Jackson Protein, Pf, 100 Mcg/0.5ml,IM Covid-19 Vaccine 2020-09-04 Completed Palmira S eybold (Moderna), Mrna-lnp, 00:00:00 Jackson Protein, Pf, 100 Mcg/0.5ml,IM Covid-19 Vaccine 2020-09-04 Completed [place] S eybold (Moderna), Mrna-lnp, 00:00:00 Jackson Protein, Pf, 100 Mcg/0.5ml,IM Covid-19 Vaccine 2020-08-10 Completed [place]ira S eybold (Moderna), Mrna-lnp, 00:00:00 Jackson Protein, Pf, 100 Mcg/0.5ml,IM Covid-19 Vaccine 2020-08-10 Completed [place]ira S eybold (Moderna), Mrna-lnp, 00:00:00 Jackosn Protein, Pf, 100 Mcg/0.5ml,IM Covid-19 Vaccine 2020-08-10 Completed [place]ira S eybold (Moderna), Mrna-lnp, 00:00:00 Jackson Protein, Pf, 100 Mcg/0.5ml,IM Influenza Virus 2020-02-20 Completed [place] Se ybold Vaccine, 00:00:00 Quadrivalent, High Dose, Age 65 And Up Influenza Virus 2020-02-20 Completed [place] Se ybold Vaccine, 00:00:00 Quadrivalent, High Dose, Age 65 And Up Influenza Virus 2020-02-20 Completed [place] Se ybold Vaccine, 00:00:00 Quadrivalent, High Dose, Age 65 And Up Influenza Virus 2019-01-25 Completed [place] Se ybold Vaccine, Split, up to 00:00:00 age 3 Influenza Virus 2019-01-25 Completed [place] Se ybold Vaccine, Split, up to 00:00:00 age 3 influenza, influenza, 2019-01-25 Completed [facility] injectable, injectable, 00:00:00 Practice quadrivalent quadrivalent Influenza Virus 2019-01-18 Completed [place] Se ybold Vaccine, High Dose, 00:00:00 Age 65 And Up Influenza Virus 2019-01-18 Completed [place] nolascoold Vaccine, High Dose, 00:00:00 Age 65 And Up Influenza Virus 2019-01-18 Completed Palmira hensley Vaccine, High Dose, 00:00:00 Age 65 And Up Tdap- (Boostrix, 2016-04-27 Completed Palmira trejobold Adacel) 00:00:00 Tdap- (Boostrix, 2016-04-27 Completed [place] trejobold Adacel) 00:00:00 Tdap- (Boostrix, 2016-04-27 Completed [place] trejobold Adacel) 00:00:00 Pneumococcal Vaccine, 2008-09-29 Completed Zackary y Seybold Polysaccharide 00:00:00 Pneumococcal Vaccine, 2008-09-29 Completed Zackary y Seybold Polysaccharide 00:00:00 Pneumococcal Vaccine, 2008-09-29 Completed Zackary sey Seybold Polysaccharide 00:00:00 Vital Signs Vital Name Observation Time Observation Value Comments Source Systolic blood 2021-03-25 19:31:00 142 mm[Hg] Palmira Seybold pressure Diastolic blood 2021-03-25 19:31:00 68 mm[Hg] Kelse y Seybold pressure Heart rate 2021-03-25 19:31:00 70 /min Palmira sanchez Body temperature 2021-03-25 19:31:00 36.33 Guillermina Kathi trejo Seybold Respiratory rate 2021-03-25 19:31:00 14 /min Kathi trejo Seyblizette Body height 2021-03-25 19:31:00 162.6 cm Palm[place] sanchez Body weight 2021-03-25 19:31:00 72.666 kg Palm[place] sanchez BMI 2021-03-25 19:31:00 27.50 kg/m2 Palmira sanchez Oxygen saturation in 2021-03-25 19:31:00 98 /min Palmira Garza Arterial blood by Pulse oximetry Systolic blood 2021-03-22 20:00:00 162 mm[Hg] [place] Seybold pressure Diastolic blood 2021-03-22 20:00:00 54 mm[Hg] Kelse y Seybold pressure Heart rate 2021-03-22 20:00:00 78 /min Palmira S eybold Body temperature 2021-03-22 20:00:00 35.56 Guillermina Kathi ey Seybold Respiratory rate 2021-03-22 20:00:00 16 /min Kathi ey Seybold Body height 2021-03-22 20:00:00 162.6 cm aPlmira S eybold Body weight 2021-03-22 20:00:00 72.122 kg Palmira S eybold BMI 2021-03-22 20:00:00 27.29 kg/m2 Palm[place] S eybold Systolic blood 2021-02-20 19:10:00 120 mm[Hg] [place] Seybold pressure Diastolic blood 2021-02-20 19:10:00 58 mm[Hg] Kelse y Seybold pressure Heart rate 2021-02-20 19:10:00 89 /min [place] S eybold Body temperature 2021-02-20 19:10:00 36.83 Guillermina Kathi ey Seybold Respiratory rate 2021-02-20 19:10:00 14 /min Kathi ey Seybold Body height 2021-02-20 19:10:00 162.6 cm Palmira S eybold Body weight 2021-02-20 19:10:00 72.122 kg Palmira Vera eybold BMI 2021-02-20 19:10:00 27.29 kg/m2 [place] Vera eybold BP Diastolic 2019-07-11 00:00:00 80 mm[Hg] [facility] Height 2019-07-11 00:00:00 64 [in_i] [facility] BMI (Body Mass Index) 2019-07-11 00:00:00 27.6 kg/m2 [facility] BP Systolic 2019-07-11 00:00:00 125 mm[Hg] [facility] Body Weight 2019-07-11 00:00:00 161 [lb_av] [facility] Procedures Procedure Date / Time Performed Performing Clinician Sour e Appendectomy [facility] ractice Plan of Care Planned Activity Planned Date Details Comments Source Instructions [facility] Encounters Start End Encounter Admission Attending Care Care Encounter Source Date/Time Date/Time Type Type Clinicians Facility Department ID 2021-05-22 Outpatient Vasu [facility] [id number] [address] 13:31:16 Adrian 61955 [facility] 2021-05-22 [facility] [id number] 11:17:42 Adrian 17296 [facility] 2021-05-22 Out[facility] Leone[facility] [id number] 11:12:57 Adrian 92209 [facility] 2021-08-21 2021-08-21 Outpatient PALMIRA HERNANDEZ [id number] [place] 14:30:00 14:30:00 KARELY Seybol d 2021-06-07 2021-06-07 Outpatient PALMIRA HERNANDEZ [id number] [place] 13:45:00 13:45:00 KARELY Seybol d 2021-05-25 2021-05-25 Outpatient HORTENCIA FAJARDO [id number] [place] 00:00:00 00:00:00 Seybol d 2021-05-21 2021-05-21 Outpatient PALMIRA WASHBURN [id number] [place] 00:00:00 00:00:00 YANIRA Seybol d 2021-04-21 2021-04-21 Outpatient PALMIRA WASHBURN [id number] [place] 00:00:00 00:00:00 YANIRA Seybol d 2021-03-25 2021-03-25 Office Jamil George [id number] [place] 13:30:00 14:00:00 Visit Karely [place] [id number] Se ybold Somogyi [id number] 2021-03-22 2021-03-22 Office Sushil Vazquez [id number] [place] 14:30:00 15:00:00 Visit Shalini N[place] [id number] Se ybold [id number] 2021-03-22 2021-03-22 Outpatient PALMIRA WASHBURN [id number] [place] 00:00:00 00:00:00 YANIRA Seybol d 2021-02-20 2021-02-20 Office [place], George [id number] [place] 14:04:06 14:34:06 Visit Karely [place] [id number] ayden Rubio [id number] 2021-01-02 2021-01-02 Outpatient EMMA PALMIRA RYAN [id number] [place] 00:00:00 00:00:00 MD SHIRA Seybol d 2020-11-20 2020-11-20 Outpatient LAB90 PALMIRA RYAN [id number] [place] 15:15:00 15:15:00 Seybol silas 2020-11-20 2020-11-20 Outpatient PALMIRA HERNANDEZ [id number] [place] 14:30:00 14:30:00 KARELY Hernandezybol silas 2020-11-13 2020-11-13 Outpatient PALMIRA HERNANDEZ [id number] [place] 16:00:00 16:00:00 KARELY Horneol silas 2019-08-03 2019-08-03 [facility] [id number] [facility] 16:37:00 16:37:00 [facility] 2019-08-02 2019-08-02 [facility] [id number] [facility] 14:47:00 14:47:00 [facility] Medicine Outpati ent [facility] 2019-07-25 2019-07-25 Outpatient Stephen-Mbayo VFP VFP [id number] [facility] 04:12:00 04:12:00 _A_AH [id number] Family Practic e 2019-07-18 2019-07-18 Outpatient Stephen-Mbayo VFP VFP [id number] [facility] 03:29:00 03:29:00 _A_AH [id number] Family Practic e 2019-07-15 2019-07-15 Outpatient Stephen-Mbayo VFP VFP [id number] [facility] 01:23:00 01:23:00 _A_AH [id number] Family Practic e 2019-07-11 2019-07-11 Cheryl VFP [place] - [id number] [place] 00:00:00 00:00:00 Stephen-Mbay [facility] andi hannon NETWORK ENGINEER: Medical - Practi c [address] [email or web address] e [facility], [address] [address], [place] [address] , Ph. 2019-07-07 2019-07-07 [facility] [id number] [address] 09:49:00 09:49:00 t [place] [facility] Medicine l Medicine Outpati ent Clinics 2019-07-07 2019-07-07 Outpatient Stephen-Mbayo VFP VF [id number] [place] 05:28:00 05:28:00 _A_AH [id number] Family Practic e 2019-06-15 2019-06-15 Outpatient Stephen-Mbayo VFP VFP [id number] [facility] 07:21:00 07:21:00 _A_AH [id number] Family Practic e 2019-06-06 2019-06-06 [facility] [id number] [facility] 12:07:00 12:07:00 t [place] [facility] Medicine l Medicine Outpati ent Clinics 2019-06-06 2019-06-06 [facility] [id number] [facility] 10:43:00 10:43:00 t [place] - [employer] [facility] Medicine l Medicine Outpati ent Clinics 2019-06-06 2019-06-06 [facility] [id number] [facility] 09:54:00 09:54:00 t [place] - [employer] [facility] Medicine l Medicine Outpati ent Clinics 2019-05-12 2019-05-12 [facility] [id number] [facility] [address] 15:09:00 15:09:00 t [place] - [employer] [facility] Medicine l Medicine Outpati ent Clinics 2019-05-12 2019-05-12 [facility] [id number] [facility] 14:45:00 14:45:00 t [employer] [facility] Medicine l Medicine Outpati ent Clinics 2019-02-28 2019-02-28 [facility] [id number] [address] 14:20:00 14:20:[address] Luke [address] - Drive [facility] Medicine l Medicine Outpati ent Clinics 2019-02-25 2019-02-25 [facility] [id number] [facility] 17:16:00 17:16:[address] Luke [address] - Drive [facility] Medicine l Medicine Outpati ent Clinics 2019-02-14 2019-02-14 [facility] [id number] [facility] 08:42:00 08:42:[address] Luke [address] - Drive [facility] Medicine l Medicine Outpati ent Clinics 2019-02-09 2019-02-09 [facility] [id number] [facility] 14:00:00 14:00:[address] Luke [place] - Drive [facility] l Medicine Outpati ent Clinics 2019-01-13 2019-01-13 [facility] [id number] [facility] 11:07:00 11:07:[address] Luke s - Drive [facility] Medicine Outpati ent Clinics 2019-01-05 2019-01-05 [facility] [id number] 13:45:00 13:45:[address] Luke [address] - Drive [facility] Medicine l Medicine Outpati ent Clinics 2018-12-23 2018-12-23 [facility] [id number] [facility] 08:28:00 08:28:00 [place] [address] [place] - Drive [facility] Medicine l Medicine Outpati ent Clinics 2018-12-22 2018-12-22 [facility] [id number] [address] 13:15:00 13:15:[address] Luke [address] - Drive [facility] Medicine l Medicine Outpati ent Clinics 2018-08-04 2018-08-04 [facility] [id number] [facility] 14:00:00 14:00:[address] [place] [address] - Drive [facility] l Medicine Outpati ent Clinics 2018-07-06 2018-07-06 [facility] [id number] [address] 11:03:00 11:03:[address] [place] [address] - Drive [facility] Medicine l Medicine Outpati ent Clinics 2018-04-09 2018-04-09 [facility] [id number] [facility] 11:15:00 11:15:00 t [place] Outpati ent Clinics 2018-01-14 2018-01-14 Outpatient Gonzalez Valdes [id number] 10:15:00 10:15:00 [facility] Outpati ent Clinics 2017-12-09 2017-12-09 Outpatient Gonzalez Valdes [id number] [facility] 14:30:00 14:30:00 t [facility] Results This patient has no known results.
[2021-06-05] MEDS ORDERED: NA CHLORIDE 0.9% 500 ML ONE (11:15)
[2021-06-05] MEDS ORDERED: TETANUS & DIPHTHERIA TOX,ADULT 0.5 ML VIAL ONE (11:16)
[2021-06-05] MEDS ORDERED: NA CHLORIDE 0.9% 1,000 ML ONE (11:16)
[2021-06-05] MEDS ORDERED: LIDOCAINE 1% W/EPI 1:100,000 MDV 50 ML VIAL ONE (11:23)
[2021-06-05 11:26] LABS: Absolute Lymphocytes (CBC) 1.7 K/uL (0.7-4.9); Hematocrit 38.4 % (36.0-45.0); Lymphocytes % 17.6 % (15.3-44.8); MPV 9.2 fL (7.6-11.3); RBC Red Blood Cell Count 4.11 M/uL (3.86-4.86)
--- NOTE | 2021-06-05 11:37 | RAD REPORT ---
EXAM DESCRIPTION: CT - CTHCSPWOC - 06/05/2021 11:15 am CLINICAL HISTORY: Pain;Swelling COMPARISON: Brain W/Wo Cont dated 05/18/2020 TECHNIQUE: Axial 5 mm thick images of the head were obtained. Axial 2 mm thick images of the cervic al spine were obtained with sagittal and coronal reconstruction images generated and reviewed. All CT scans are performed using dose optimization technique as appropriate and may include automated exposure control or mA/KV adjustment according to patient size. FINDINGS: No intracranial hemorrhage, mass, edema or acute intracranial finding. No suspicion for ac [place] infarction. No cortical edema or sulcal effacement. Atrophy changes are mild. Ventricles are in p roportion to any volume loss. Moderate severity chronic ischemic change seen throughout the cerebral white matter. Brainstem and basal ganglia appear spared any significant chronic ischemic change. Mast oid air cells and paranasal sinuses are clear. No globe or orbit abnormality seen. Small left posterior parietal scalp hematoma is present. Underlying skull is intact. Cervical bodies are normal in height. There is minimal anterior subluxation C5 on C6. Significant C6- 7 disc space narrowing seen with circumferential endplate spurring changes. C5-6 shows less significa nt disc space narrowing. No fracture or acute bony abnormality. Degenerative changes are present at t he dens C1 level. Prominent facet joint degenerative changes are present at multiple levels. Moderate left-side and mild right-sided foraminal stenosis present at C6-7 from uncovertebral joint hypertrop hy. Central canal detail is inherently limited. No paraspinal mass or hematoma. IMPRESSION: No acute intracranial finding. Patient has a small posterior left scalp hematoma. Cervical spine degenerative changes are present as detailed. No acute cervical spine finding seen.
[2021-06-05 11:42] LABS: Protime INR 0.97
[2021-06-05 11:48] LABS: Albumin 3.6 g/dL (3.4-5.0); Bilirubin Direct 0.1 mg/dL (0-0.2); Bilirubin Total 0.4 mg/dL (0.2-1.0); Potassium 3.6 mmol/L (3.5-5.1)
--- NOTE | 2021-06-05 11:53 | RAD REPORT ---
EXAM DESCRIPTION: RAD - Chest Single View - 06/05/2021 11:35 am CLINICAL HISTORY: COUGH, fall, head, neck and chest trauma COMPARISON: Portable 05/18/2020 TECHNIQUE: AP portable chest image was obtained 06/05/2021 11:35 am . FINDINGS: No acute lung parenchymal process seen. Interstitial pattern matches comparison. No hilar mass or lymphadenopathy seen. Heart and vasculature are normal. No measurable pleural effusion and no pneumothorax. No acute bony abnormality seen. No acute aortic findings suspected. IMPRESSION: No acute cardiopulmonary process. No significant change from comparison study.
[2021-06-05] MEDS ORDERED: NA CHLORIDE 0.9% 100 ML IV ONE (12:01)
[2021-06-05] MEDS ORDERED: CEFAZOLIN SODIUM 1 GM/VIAL ONE (12:01)
[2021-06-05 12:10] LABS: Urine Blood Negative (Negative); Urine Glucose Negative (Negative); Urine Protein Negative (Negative); Urine Specific Gravity 1.015 (1.005-1.030)
--- NOTE | 2021-06-05 13:16 | RAD REPORT ---
EXAM DESCRIPTION: US - Extrem Venous W Compress Anderson - 06/05/2021 1:10 pm CLINICAL HISTORY: Pain;Swelling COMPARISON: No comparisons TECHNIQUE: Real-time sonographic evaluation of the lower extremity deep venous systems was performed using color Doppler, grayscale, and compression. FINDINGS: Bilateral lower extremities. Normal compressibility, flow augmentation, phasic flow and spontaneous flow is identified in both the left and right lower extremity deep venous systems. No intraluminal filling defects seen. IMPRESSION: No DVT in either lower extremity.
[2021-06-05] MEDS ORDERED: DIAZEPAM 5 MG TABLET ONE (13:22)
[2021-06-05] MEDS ORDERED: HYDROMORPHONE HCL 1 MG/ML INJ ONE (13:23)
[2021-06-05] MEDS ORDERED: ONDANSETRON 4 MG/2 ML VIAL ONE (13:23)
--- NOTE | 2021-06-05 13:39 | ER ---
Nurse's Notes [facility] Name: Celina Dinh Age: 81 yrs Sex: Female : 1940 Arrival Date: 06/05/2021 Time: 10:21 Bed 6 Private MD: Diagnosis: Fall on same level, unspecified;Syncope Near;Laceration without foreign body of other part of head-scalp Presentation: 06/05 10:28 Chief complaint: Patient states: got up this and was going to take a shower, became vg1 dizzy and hit the top of head on the tub. Pt appears to have a laceration to the top of head; blood noted; denies taking any blood thinners. Coronavirus screen: Vaccine status: Patient reports receiving the 2nd dose of the covid vaccine. Client denies travel out of the [place] in the last 14 days. Ebola Screen: Patient negative for fever greater than or equal to 101.5 degrees Fahrenheit, and additional compatible Ebola Virus Disease symptoms. Mechanism of Injury: The problem was sustained at home, resulted from a fall, from a standing position. Initial Sepsis Screen: Does the patient meet any 2 criteria? Yes Does the patient have a suspected source of infection? Yes:. Risk Assessment: Do you want to hurt yourself or someone else? Patient reports no desire to harm self or others. Onset of symptoms was June 05, 2021. 10:28 Method Of Arrival: Wheelchair vg1 10:28 Acuity: SHERRELL 3 vg1 10:30 Care prior to arrival: None. Trauma event details: Injury occurred in the [address], Injury occurred: at home. Injury occurred: June 05, 2021. Triage Assessment: 10:28 General: Appears uncomfortable, Behavior is calm, cooperative. Pain: Denies pain. vg1 Neuro: Level of Consciousness is awake, alert, obeys commands, Oriented to person, place, time, situation, Denies blurred vision dizziness, headache. Trauma Activation: Not Applicable Physician: ED Physician; Name: ; Notified At: ; Arrived At: Physician: General Surgeon; Name: ; Notified At: ; Arrived At: Physician: Radiology; Name: ; Notified At: ; Arrived At: Physician: Respiratory; Name: ; Notified At: ; Arrived At: Physician: Lab; Name: ; Notified At: ; Arrived At: Historical: - Allergies: 10:33 Aspirin; nausea; vg1 - Home Meds: 10:33 baclofen [Active]; losartan [Active]; vg1 - PMHx: 10:33 Hypertension; vg1 - PSHx: 10:33 None; vg1 - Immunization history:: Client reports receiving the 2nd dose of the Covid vaccine. - Social history:: Smoking status: Patient denies any tobacco usage or history of. - Immunization history: Last tetanus immunization: unknown. - Family history:: not pertinent. Screenin:51 Abuse screen: Denies threats or abuse. Denies injuries from another. Nutritional jg9 screening: No deficits noted. Tuberculosis screening: No symptoms or risk factors identified. Fall Risk Fall in past 12 months (25 points). Secondary diagnosis (15 points) confusion. IV access (20 points). Mental Status- Overestimates/Forgets Limitations (15 pts.). Primary Survey: 10:28 NO uncontrolled hemorrhage observed. A: The patient is alert. Airway: patent. jg9 Breathing/Chest: Respiratory pattern: regular, Respiratory effort: spontaneous, unlabored, Breath sounds: clear, bilaterally. Chest inspection: symmetrical rise and fall of the chest. Circulation: Cardiac rhythm: sinus rhythm with 1st degree heart block, Heart tones present. Pulses: palpable right radial artery, right femoral artery, left radial artery and left femoral artery. Disability Alert. Exposure/Environment: Obvious injury(ies) are noted at this time: laceration to top of head-unknown length due to significant amount of coagulated blood. A warming method has been applied: A warm blanket has been provided to the patient. 12:03 Reassessment Airway Airway Patent Breathing/Chest Respiratory pattern Regular jg9 Respiratory effort Spontaneous Unlabored Breath sounds Clear Chest inspection Symmetrical Circulation Heart rhythm Sinus rhythm Heart tones Present Pulses Palpable Color [place] Temperature Warm Arterial Line Other. Secondary Survey: 12:03 HEENT: Head Other laceration to top of head. Gastrointestinal: No deficits noted. : jg9 No deficits noted. Musculoskeletal: No deficits noted. Injury Description: Head injury sustained to left side of the back of head is open, laceration Laceration sustained to scalp. Assessment: 10:47 General: Appears in no apparent distress. Behavior is calm. Neuro: Reports dizziness, jg9 Patient felt dizzy and then fell hitting he head on the bath tub. Neuro: Oriented to person, place, time, patient presents with some confusion to events leading up to chief complaint (fall with head injury), bests friend at bedside reports the patient is a little confused. . Cardiovascular: No deficits noted. Rhythm is sinus rhythm with 1st degree heart block. Respiratory: No deficits noted. GI: No deficits noted. : No deficits noted. EENT: No deficits noted. Derm: Skin Wound noted scalp Wound is laceration to top of had-bleeding controlled, unable to see extent of injury due to clotted blood, bleeding controlled prior to arrival at the ed. Musculoskeletal: No deficits noted. Injury Description: Laceration sustained to scalp is was sustained 13:14 Reassessment: Pt amb to bathroom. Steady gait. No distress noted.. ic1 Vital Signs: 10:28 BP 142 / 82; Pulse 88; Resp 16; Temp 97.9; Pulse Ox 99% ; Weight 68.04 kg (R); Height 5 j9 ft. 4 in. (162.56 cm) (R); Pain 0/10; 10:30 BP 199 / 100; Pulse 88; Resp 22 S; Pulse Ox 96% on R/A; jg9 11:00 BP 195 / 97; Pulse 95; Resp 20 S; Pulse Ox 95% on R/A; jg9 12:00 BP 200 / 78; Pulse 98; Resp 22 S; Pulse Ox 99% on R/A; jg9 13:36 BP 149 / 84; Pulse 81; Resp 16; Pulse Ox 100% on R/A; ic1 13:39 BP 141 / 83 Supine; Pulse 78; Resp 13 S; Pulse Ox 100% on R/A; jg9 13:45 BP 199 / 102 Sitting; Pulse 88; Resp 11; Pulse Ox 100% on R/A; jg9 13:45 BP 205 / 105 Standing; Pulse 93; Resp 12; Pulse Ox 100% on R/A; jg9 10:28 Body Mass Index 25.75 (68.04 kg, 162.56 cm) j9 Silvia Coma Score: 10:28 Eye Response: spontaneous(4). Verbal Response: confused(4). Motor Response: obeys vg1 commands(6). Total: 14. 10:30 Eye Response: spontaneous(4). Verbal Response: confused(4). Motor Response: obeys jg9 commands(6). Total: 14. 11:08 Eye Response: spontaneous(4). Verbal Response: oriented(5). Motor Response: obeys john commands(6). Total: 15. 11:17 Eye Response: spontaneous(4). Verbal Response: oriented(5). Motor Response: obeys john commands(6). Total: 15. Trauma Score (Adult): 10:30 Eye Response: spontaneous(1); Verbal Response: confused(1); Motor Response: obeys jg9 commands(2); Systolic BP: > 89 mm Hg(4); Respiratory Rate: 10 to 29 per min(4); Silvia Score: 14; Trauma Score: 12 ED Course: 10:21 Patient arrived in ED. am2 10:28 Arm band placed on. vg1 10:30 Patient maintains SpO2 saturation greater than 95% on room air. Thermoregulation: warm jg9 blanket given to patient. 10:33 Triage completed. vg1 10:37 Jen Montano, MIKE is Primary Nurse. jg9 10:45 No apparent distress. Resting quietly. Pt visited by Friend. jg9 10:51 Maury Parada MD is Attending Physician. john 10:52 Patient has correct armband on for positive identification. Bed in low position. Call jg9 light in reach. Side rails up X 1. 10:56 No provider procedures requiring assistance completed. Inserted saline lock: 20 gauge ic1 in right antecubital area, using aseptic technique. Blood collected. 11:[address] via stretcher. jg9 11:14 CT Head C Spine In Process Unspecified. EDMS 11:34 XRAY Chest (1 view) In Process Unspecified. EDMS 12:05 Wound care: to laceration Dr. Parada at bedside cleaning injury and suturing. jg9 12:58 US Extremity Venous W Compression Anderson In Process Unspecified. EDMS 14:00 No apparent distress. Resting quietly. patient able to perform ortho test without jg9 difficulty, no highhandedness, dizziness reported. 14:30 IV discontinued. jg9 Administered Medications: 14:33 Discontinued: NS 0.9% 1000 ml IV at 125 ml/hr continuous jg9 11:20 Drug: Tetanus-Diphtheria Toxoid Adult 0.5 ml {Medication Specialist: [employer]. Exp: jg9 09/07/2022. Lot #: [id number]. } Route: IM; Site: right deltoid; 12:00 Follow up: Response: No adverse reaction jg9 11:25 Drug: NS 0.9% 500 ml Route: IV; Rate: bolus; Site: right antecubital; jg9 12:25 Follow up: IV Status: Completed infusion; IV Intake: 500ml jg9 12:12 Dru grams of (Ancef (cefazolin) 1 grams, NS 0.9% 100 ml) Route: IVPB; Site: right ic1 antecubital; 14:31 Follow up: Response: No adverse reaction jg9 13:15 Drug: NS 0.9% 1000 ml Route: IV; Rate: 125 ml/hr; Site: right antecubital; jg9 14:31 Follow up: IV Status: Order to discontinue infusion; IV Intake: 800ml jg9 13:38 Drug: Lidocaine (1 %) 5 ml {Note: administered to head laceratio prior to debridement jg9 and suturing. .} Volume: 20 ml; Route: Infiltration; 14:32 Follow up: Response: No adverse reaction; Pain is decreased jg9 Intake: 12:25 IV: 500ml; Total: 500ml. jg9 13:36 IV: 1500ml; Total: 2000ml. ic1 14:31 IV: 800ml; Total: 2800ml. jg9 Output: 13:36 Urine: 800ml (Voided); Total: 800ml. ic1 Outcome: 13:34 pending test resultsPatient's length of stay extended due to jg9 13:39 Discharge ordered by MD. lopez 13:40 Condition: stable jg9 14:30 Discharged to home ambulatory. jg9 14:30 Discharge instructions given to patient, Instructed on discharge instructions, follow up and referral plans. Demonstrated understanding of instructions, follow-up care, medications, Prescriptions given X 1. 14:30 Patient left the ED. jg9 Signatures: Dispatcher [employer] EDMS Maury Parada MD MD cha Moreno, Amanda am2 Shelly Ma, RN RN vg1 Jen Montano RN RN jg9 Swathi Cason RN RN ic1 Corrections: (The following items were deleted from the chart) 10:34 10:28 GCS: 15, vg1 vg1 10:34 10:33 Home Meds: lasix; vg1 vg1 11:04 10:28 BP 142 / 82; Pulse 88bpm; Resp 16bpm; Pulse Ox 99%; Temp 97.9F; Pain 0/10; vg1 jg9
--- NOTE | 2021-06-05 13:39 | EDPHYS ---
Physician Documentation [facility] Name: Celina Dinh Age: 81 yrs Sex: Female : 1940 Arrival Date: 06/05/2021 Time: 10:21 Bed 6 Private MD: KERI Physician Maury Parada HPI: 06/05 11:08 This 81 yrs old Female presents to ER via Wheelchair with complaints of Head john Injury-Adult, Fall Injury. 11:08 The patient or guardian reports injury, a laceration, pain. The complaints affect the john right side of the back of head and right occipital area. Context of injury: The problem was sustained at home. Onset: The symptoms/episode began/occurred just prior to arrival. Associated signs and symptoms: The patient has no apparent associated signs or symptoms, Loss of consciousness: This patient did not experience any loss of consciousness. Severity of symptoms: At their worst the symptoms were mild, in the emergency department the symptoms are unchanged. The patient has not experienced similar symptoms in the past. Historical: - Allergies: 10:33 Aspirin; nausea; vg1 - Home Meds: 10:33 baclofen [Active]; losartan [Active]; vg1 - PMHx: 10:33 Hypertension; vg1 - PSHx: 10:33 None; vg1 - Immunization history:: Client reports receiving the 2nd dose of the Covid vaccine. - Social history:: Smoking status: Patient denies any tobacco usage or history of. - Immunization history: Last tetanus immunization: unknown. - Family history:: not pertinent. ROS: 11:08 Constitutional: Negative for fever, chills, and weight loss, Eyes: Negative for injury, john pain, redness, and discharge, ENT: Negative for injury, pain, and discharge, Neck: Negative for injury, pain, and swelling, Cardiovascular: Negative for chest pain, palpitations, and edema, Respiratory: Negative for shortness of breath, cough, wheezing, and pleuritic chest pain, Abdomen/GI: Negative for abdominal pain, nausea, vomiting, diarrhea, and constipation, Back: Negative for injury and pain, : Negative for injury, bleeding, discharge, and swelling, MS/Extremity: Negative for injury and deformity, Neuro: Negative for headache, weakness, numbness, tingling, and seizure, Psych: Negative for depression, anxiety, suicide ideation, homicidal ideation, and hallucinations, Allergy/Immunology: Negative for hives, rash, and allergies, Endocrine: Negative for neck swelling, polydipsia, polyuria, polyphagia, and marked weight changes, Hematologic/Lymphatic: Negative for swollen nodes, abnormal bleeding, and unusual bruising. 11:08 Skin: Positive for hematoma, laceration(s). Exam: 11:08 Constitutional: This is a well developed, well nourished patient who is awake, alert, john and in no acute distress. Eyes: Pupils equal round and reactive to light, extra-ocular motions intact. Lids and lashes normal. Conjunctiva and sclera are non-icteric and not injected. Cornea within normal limits. Periorbital areas with no swelling, redness, or edema. ENT: Nares patent. No nasal discharge, no septal abnormalities noted. Tympanic membranes are normal and external auditory canals are clear. Oropharynx with no redness, swelling, or masses, exudates, or evidence of obstruction, uvula midline. Mucous membranes moist. Neck: Trachea midline, no thyromegaly or masses palpated, and no cervical lymphadenopathy. Supple, full range of motion without nuchal rigidity, or vertebral point tenderness. No Meningismus. Chest/axilla: Normal chest wall appearance and motion. Nontender with no deformity. No lesions are appreciated. Cardiovascular: Regular rate and rhythm with a normal S1 and S2. No gallops, murmurs, or rubs. Normal PMI, no JVD. No pulse deficits. Respiratory: Lungs have equal breath sounds bilaterally, clear to auscultation and percussion. No rales, rhonchi or wheezes noted. No increased work of breathing, no retractions or nasal flaring. Abdomen/GI: Soft, non-tender, with normal bowel sounds. No distension or tympany. No guarding or rebound. No evidence of tenderness throughout. Back: No spinal tenderness. No costovertebral tenderness. Full range of motion. Female : Normal external genitalia. Skin: Warm, dry with normal turgor. Normal color with no rashes, no lesions, and no evidence of cellulitis. MS/ Extremity: Pulses equal, no cyanosis. Neurovascular intact. Full, normal range of motion. Neuro: Awake and alert, GCS 15, oriented to person, place, time, and situation. Cranial nerves II-XII grossly intact. Motor strength 5/5 in all extremities. Sensory grossly intact. Cerebellar exam normal. Normal gait. Psych: Awake, alert, with orientation to person, place and time. Behavior, mood, and affect are within normal limits. 11:08 Head/face: Noted is contusion, hematoma, a laceration(s), swelling, that is mild, of the right side of the back of head and right occipital area. 11:58 ECG was reviewed by the Attending Physician. [facility] Vital Signs: 10:28 BP 142 / 82; Pulse 88; Resp 16; Temp 97.9; Pulse Ox 99% ; Weight 68.04 kg (R); Height 5 jg9 ft. 4 in. (162.56 cm) (R); Pain 0/10; 10:30 BP 199 / 100; Pulse 88; Resp 22 S; Pulse Ox 96% on R/A; jg9 11:00 BP 195 / 97; Pulse 95; Resp 20 S; Pulse Ox 95% on R/A; jg9 12:00 BP 200 / 78; Pulse 98; Resp 22 S; Pulse Ox 99% on R/A; jg9 13:36 BP 149 / 84; Pulse 81; Resp 16; Pulse Ox 100% on R/A; ic1 13:39 BP 141 / 83 Supine; Pulse 78; Resp 13 S; Pulse Ox 100% on R/A; jg9 13:45 BP 199 / 102 Sitting; Pulse 88; Resp 11; Pulse Ox 100% on R/A; jg9 13:45 BP 205 / 105 Standing; Pulse 93; Resp 12; Pulse Ox 100% on R/A; jg9 10:28 Body Mass Index 25.75 (68.04 kg, 162.56 cm) jg9 Silvia Coma Score: 10:28 Eye Response: spontaneous(4). Verbal Response: confused(4). Motor Response: obeys vg1 commands(6). Total: 14. 10:30 Eye Response: spontaneous(4). Verbal Response: confused(4). Motor Response: obeys jg9 commands(6). Total: 14. 11:08 Eye Response: spontaneous(4). Verbal Response: oriented(5). Motor Response: obeys john commands(6). Total: 15. 11:17 Eye Response: spontaneous(4). Verbal Response: oriented(5). Motor Response: obeys john commands(6). Total: 15. Trauma Score (Adult): 10:30 Eye Response: spontaneous(1); Verbal Response: confused(1); Motor Response: obeys jg9 commands(2); Systolic BP: > 89 mm Hg(4); Respiratory Rate: 10 to 29 per min(4); Silvia Score: 14; Trauma Score: 12 Laceration: 11:55 Wound Repair of 3cm ( 1.2in ) subcutaneous laceration to right side of the back of [facility] head. Irregularly shaped.. Minimal bleeding noted.. Distal neuro/vascular/tendon intact. Anesthesia: Local anesthetic administered with 5 mls of 1% lidocaine w/ Epi. Wound prep: Moderate cleansing by me. Skin closed with 4 kayden Kayden using staple gun. Dressed with non-adherent dressing. Patient tolerated well. MDM: 10:51 Patient medically screened. [facility] 11:17 Differential diagnosis: Contusion of Hematoma on Laceration of Concussion. Data [facility] reviewed: vital signs, nurses notes, EMS record, lab test result(s), EKG, radiologic studies, CT scan, doppler, plain films. Data interpreted: campus monitor: rate is 95 beats/min, rhythm is regular. Test interpretation: by ED physician or midlevel provider: ECG, plain radiologic studies. Counseling: I had a detailed discussion with the patient and/or guardian regarding: the historical points, exam findings, and any diagnostic results supporting the discharge/admit diagnosis, lab results, radiology results, the need for outpatient follow up, for definitive care, a family practitioner. 06/05 11:08 Order name: Basic Metabolic Panel [facility] 06/05 11:08 Order name: CBC with Diff; Complete Time: 11:54 [facility] 06/05 11:08 Order name: LFT's [facility] 06/05 11:08 Order name: Magnesium [facility] 06/05 11:08 Order name: NT PRO-BNP [facility] 06/05 11:08 Order name: PT-INR; Complete Time: 11:54 [facility] 06/05 11:08 Order name: Troponin HS [facility] 06/05 11:08 Order name: XRAY Chest (1 view); Complete Time: 11:54 [facility] 06/05 11:08 Order name: CT Head C Spine; Complete Time: 11:54 [facility] 02/09 11:08 Order name: US Extremity Venous W Compression Anderson; Complete Time: 13:37 john 06/05 11:08 Order name: Urine Culture [facility] 06/05 12:10 Order name: Urine Dipstick-Ancillary; Complete Time: 13:37 EDMS 06/05 11:08 Order name: EKG; Complete Time: 11:09 [facility] 06/05 11:08 Order name: Cardiac monitoring; Complete Time: 11:10 john 06/05 11:08 Order name: EKG - Nurse/Tech; Complete Time: 11:10 [facility] 06/05 11:08 Order name: IV Saline Lock; Complete Time: 11:10 [facility] 06/05 11:08 Order name: Labs collected and sent; Complete Time: 11:38 [facility] 06/05 11:08 Order name: O2 Sat Monitoring; Complete Time: 11:10 [facility] 06/05 11:08 Order name: Urine Dipstick-Ancillary (obtain specimen); Complete Time: 13:34 [facility] 06/05 13:40 Order name: PO challenge; Complete Time: 13:55 [facility] 06/05 13:40 Order name: Orthostatics; Complete Time: 13:55 [facility] EC:58 Rate is 80 beats/min. Rhythm is regular. QRS [place] is Normal. IN interval is prolonged john at 210 msec. QRS interval is normal. QT interval is normal. No Q waves. T waves are Normal. No ST changes noted. Clinical impression: NSR w/ Non-specific ST/T Changes, 1st degree heart block, and No evidence of ischemia. Interpreted by me. Reviewed by me. Administered Medications: 14:33 Discontinued: NS 0.9% 1000 ml IV at 125 ml/hr continuous jg9 11:20 Drug: Tetanus-Diphtheria Toxoid Adult 0.5 ml {Product Safety Tester: [employer]. Exp: jg9 09/07/2022. Lot #: [id number]. } Route: IM; Site: right deltoid; 12:00 Follow up: Response: No adverse reaction jg9 11:25 Drug: NS 0.9% 500 ml Route: IV; Rate: bolus; Site: right antecubital; jg9 12:25 Follow up: IV Status: Completed infusion; IV Intake: 500ml jg9 12:12 Dru grams of (Ancef (cefazolin) 1 grams, NS 0.9% 100 ml) Route: IVPB; Site: right ic1 antecubital; 14:31 Follow up: Response: No adverse reaction jg9 13:15 Drug: NS 0.9% 1000 ml Route: IV; Rate: 125 ml/hr; Site: right antecubital; jg9 14:31 Follow up: IV Status: Order to discontinue infusion; IV Intake: 800ml jg9 13:38 Drug: Lidocaine (1 %) 5 ml {Note: administered to head laceratio prior to debridement jg9 and suturing. .} Volume: 20 ml; Route: Infiltration; 14:32 Follow up: Response: No adverse reaction; Pain is decreased jg9 Disposition Summary: 06/05/21 13:39 Discharge Ordered Location: Home john Problem: new john Symptoms: have improved john Condition: Stable john Diagnosis - Fall on same level, unspecified john - Syncope Near john - Laceration without foreign body of other part of head - scalp john Followup: john - With: Private Physician - When: 2 - 3 days - Reason: Recheck today's complaints, Continuance of care, Re-evaluation by your physician Discharge Instructions: - Discharge Summary Sheet john - Head Injury, Adult john - Laceration Care, Adult john - Near-Syncope john - Weakness john - Laceration Care, Adult, [id number] john - Weakness, [id number] john - Head Injury, Adult, [id number] john Forms: - Medication Reconciliation Form john - Thank You Letter john - Antibiotic Education john - Prescription Opioid Use john Prescriptions: - Cephalexin 500 mg Oral Capsule - take 1 capsule by ORAL route every 6 hours for 7 days; 28 capsule; Refills: 0, john Product Selection Permitted Signatures: Dispatcher [employer] Maury Fierro MD MD cha Garcia, Victoria RN RN vg1 Jen Montano RN RN jg9 Swathi Cason RN RN ic1 Corrections: (The following items were deleted from the chart) 10:34 10:33 Home Meds: lasix; vg1 vg1
[2021-06-05 14:36] VITALS: TEMP 97.9
[2021-06-05 14:41] VITALS: O2SAT 100
[2021-06-05 14:44] VITALS: BP 205/105
[2021-06-06 00:12] LABS: Magnesium 1.3
== END 2021-06-05 14:30 | disposition home or self-care (01) ==
LOC: ER 10:19
PROC: 0JQ00ZZ Repair Scalp Subcutaneous Tissue and Fascia, Open Approach (ICD-10-PCS; principal; 2021-06-05)
DX: S01.01XA Laceration without foreign body of scalp, initial encounter (principal); W18.30XA Fall on same level, unspecified, initial encounter; Y92.009 Unspecified place in unspecified non-institutional (private) residence as the place of occurrence of the external cause; I10 Essential (primary) hypertension; Z88.6 Allergy status to analgesic agent; Z23 Encounter for immunization
CPT/HCPCS: 87088; 85025; 87086; 80048; 36415; 83735; 85610; 80076; 81003; 84484; 83880; 70450; 72125; 71045; 93970; 90714; 12002; J1170; J7040; J7030; J2405; J0690; 90471; 96361; 96374; 99285